=== PATIENT | male | born 1970 | race African-American/Black ===

== ENCOUNTER 2016-11-26 05:55 | Emergency (ER) | payer BC, OTHER ==
[~2016-11-26] VITALS: Ht 170.2 cm; Wt 78.0 kg
[~2016-11-26 05:55] MED LIST: AMLO10 PO; BACT800T5 PO; CIAL5TAB PO; DARU1TAB PO; NAPR500 PO; PREV30CA36 PO; TRUV200300 PO
[2016-11-26 05:57] VITALS: BP 142/90; PULSE 93; RESP 16; TEMP 98.2; O2SAT 96
[2016-11-26] MEDS ORDERED: EMTR1TAB PO (06:14)
[2016-11-26] MEDS ORDERED: AMLO10 PO (06:14)
[2016-11-26] MEDS ORDERED: BACT800T5 PO (06:14)
[2016-11-26] MEDS ORDERED: DARU1TAB2 PO (06:14)
[2016-11-26] MEDS ORDERED: HYDR-2374 PO (06:14)
[2016-11-26] MEDS ORDERED: AMOX500T PO (06:42)
[2016-11-26] MEDS ORDERED: AMOXICILLIN (TRIHYDRATE) 500 MG CAP PO ONE (06:45)
--- NOTE | 2016-11-26 06:46 | PD ---
HPI Chief Complaint: Cold / Flu Symptoms Time Seen by Provider: 06:43 Travel History International Travel<30 days: No Contact w/Intl Traveler<30days: No Traveled to known affect area: No History of Present Illness HPI 46 old black male presents to emergency Department with complaints of sore throat over the past 4 days. In addition he has had subjective fever and chills , earache, sore throat, congestion, cough, and slight diarrhea. He denies any shortness of breath or wheezing. No nausea vomiting. No abdominal pain or urinary symptoms. PFSH Past Medical History Narrative Medical Hypertension, HIV, chronic back pain Heart Rhythm Problems: No Cardiovascular Problems: Yes High Cholesterol: No Chest Pain: Yes Congestive Heart Failure: No Cerebrovascular Accident: No Diminished Hearing: No GERD: No Genitourinary: No Hepatitis: No Hiatal Hernia: No Hypertension: Yes Immune Disorder: Yes (hiv) Kidney Stones: No Musculoskeletal: No Neurologic: Yes Reproductive: No Respiratory: No Immunizations Current: Yes Migraines: Yes (SINUS PROBLEMS) Myocardial Infarction: No Renal Failure: No Ulcer: No Tetanus Vaccination: < 5 Years Past Surgical History Surgical History: No Previous Surgery Appendectomy: No Cholecystectomy: No Other Surgery: No Social History Alcohol Use: Yes (OCC) Tobacco Use: No Substance Use: Yes ( MARIJUANA) Allergies-Medications (Allergen,Severity, Reaction): Coded Allergies: No Known Allergies (Verified , 11/26/16) Reported Meds & Prescriptions Reported Meds & Active Scripts Active Amoxicillin 500 Mg Tab 1,000 Mg PO BID Reported Hydrocodone-Acetaminophen 10-300 Tab 1 Tab PO Q4H PRN Norvasc (Amlodipine Besylate) 10 Mg Tab 10 Mg PO DAILY Prezcobix (Darunavir-Cobicistat) 800-150 Mg Tab 1 Tab PO DAILY Truvada (Emtricitabine-Tenofovir Disoproxil Fumarate) 200-300 Mg Tab 1 Tab PO DAILY Bactrim DS (Sulfamethoxazole-Trimethoprim) 800-160 Mg Tab 1 Tab PO DAILY Review of Systems Except as stated in HPI: all other systems reviewed are Neg Physical Exam Narrative GENERAL: Well-developed, well-nourished in no acute distress. Nontoxic appearing. HEAD: Normocephalic, atraumatic. EYES: Pupils equal round and reactive. Extraocular motions intact. No scleral icterus. No injection or drainage. ENT: TMs clear without erythema. The external auditory canals clear. Nose: clear . Posterior pharynx is pink and moist. No tonsillar edema or exudate. Uvula midline. Airway patent. NECK: Trachea midline.Supple, nontender, moves head freely. No central bony tenderness or spasm. CARDIOVASCULAR: Regular rate and rhythm without murmurs, gallops, or rubs. RESPIRATORY: Clear to auscultation. Breath sounds equal bilaterally. No wheezes , rales, or rhonchi. GASTROINTESTINAL: Abdomen soft, non-tender, nondistended. No hepato-splenomegaly , or palpable masses. No guarding. EXTREMITIES: No clubbing, cyanosis, or edema. No joint tenderness, effusion, or edema noted. BACK: Nontender without deformity or crepitance. No flank tenderness. Data Data Last Documented VS Vital Signs Date Time Temp Pulse Resp B/P Pulse Ox O2 Delivery O2 Flow Rate FiO2 11/26/16 05:57 98.2 93 16 142/90 96 Room Air MDM Medical Decision Making Medical Screen Exam Complete: Yes Emergency Medical Condition: Yes Medical Record Reviewed: Yes Differential Diagnosis MDM: High Differential diagnoses: Strep throat, viral pharyngitis, mono, peritonsillar abscess Narrative Course Patient is given amoxicillin 500 mg by mouth. This is acute pharyngitis Diagnosis Primary Impression: Acute pharyngitis Qualified Code: J02.9 - Acute pharyngitis, unspecified etiology Patient Instructions: General Instructions Additional Instructions: Rest. Force fluids. Saltwater gargles. Tylenol and Advil. Chloraseptic [place] Cepastat lozenge. Amoxicillin. Follow-up with a primary care doctor in one week. Return to the ER if any problems. Med/Other Pt SpecificInfo: Prescription(s) given Scripts Amoxicillin 500 Mg Tab1,000 Mg PO BID #40 TAB Prov:Stefani Lui MD 11/26/16 Disposition: 01 DISCHARGE HOME Condition: Serious Bravo Marina Nov 26, 2016 06:45
== END 2016-11-26 06:51 | disposition home or self-care (01) ==
LOC: NEPB 05:55
DX: J02.9 Acute pharyngitis, unspecified (principal); I10 Essential (primary) hypertension; Z21 Asymptomatic human immunodeficiency virus [HIV] infection status
CPT/HCPCS: 99283

== ENCOUNTER 2017-06-26 17:27 | Emergency (ER) | payer BC, OTHER ==
[~2017-06-26] VITALS: Ht 170.2 cm; Wt 77.0 kg
[~2017-06-26 17:27] MED LIST changes: +AMOX500T PO; -CIAL5TAB PO; -DARU1TAB PO; +DARU1TAB2 PO; +EMTR1TAB PO; +HYDR-2374 PO; -NAPR500 PO; -PREV30CA36 PO; -TRUV200300 PO
[2017-06-26 17:56] VITALS: BP 157/104; PULSE 68; RESP 18; TEMP 98.3; O2SAT 98
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
== END 2017-06-26 18:36 ==
LOC: NEPD 17:27
DX: M54.2 Cervicalgia (principal); M54.5 Low back pain; V53.6XXA Passenger in pick-up truck or van injured in collision with car, pick-up truck or van in traffic accident, initial encounter; Y92.414 Local residential or business street as the place of occurrence of the external cause; I10 Essential (primary) hypertension
CPT/HCPCS: 99283

== ENCOUNTER 2017-07-06 21:49 | Emergency (ER) | payer BC ==
[~2017-07-06] VITALS: Ht 170.2 cm; Wt 80.0 kg
[~2017-07-06 21:49] MED LIST changes: -AMOX500T PO
[2017-07-06 22:00] VITALS: BP 159/106; PULSE 61; RESP 14; TEMP 98.7; O2SAT 98
--- NOTE | 2017-07-06 22:39 | PD ---
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 He was asked by his employer to go get checked out. Patient states he helped his daughter move today in the hot sun prior to going to work today and he feels that he just felt a little faint at work, he states he feels 100% normal. He has no pain, headache or dizziness, no nausea, no vomiting, no visual changes. He states he is current on his HIV medications, and is on amlodipine for pressure he has no known drug allergies. PFSH Past Medical History Heart Rhythm Problems: No Cardiovascular Problems: Yes High Cholesterol: No Chest Pain: Yes Congestive Heart Failure: No Cerebrovascular Accident: No Diminished Hearing: No GERD: No Genitourinary: No Hepatitis: No Hiatal Hernia: No Hypertension: Yes Immune Disorder: Yes (hiv) Kidney Stones: No Musculoskeletal: No Neurologic: Yes Reproductive: No Respiratory: No Immunizations Current: Yes Migraines: Yes (SINUS PROBLEMS) Myocardial Infarction: No Renal Failure: No Ulcer: No Tetanus Vaccination: < 5 Years Influenza Vaccination: Yes Past Surgical History Surgical History: No Previous Surgery Appendectomy: No Cholecystectomy: No Other Surgery: No Social History Alcohol Use: Yes (OCC) Tobacco Use: No Substance Use: Yes ( MARIJUANA) Allergies-Medications (Allergen,Severity, Reaction): Coded Allergies: No Known Allergies (Verified , 06/26/17) Reported Meds & Prescriptions Reported Meds & Active Scripts Active Reported Hydrocodone-Acetaminophen 10-300 Tab 1 Tab PO Q4H PRN Norvasc (Amlodipine Besylate) 10 Mg Tab 10 Mg PO DAILY Truvada (Emtricitabine-Tenofovir Disoproxil Fumarate) 200-300 Mg Tab 1 Tab PO DAILY Bactrim DS (Sulfamethoxazole-Trimethoprim) 800-160 Mg Tab 1 Tab PO DAILY Review of Systems Except as stated in HPI: all other systems reviewed are Neg General / Constitutional: No: Fever, Chills Eyes: No: Diploplia, Blurred Vision, Photophobia, Blind Spots, Visual changes, Blindness HENT: Positive: Lightheadedness, No: Headaches, Vertigo, Sore Throat, Rhinitis , Rhinorrhea, Congestion, Nosebleed, Neck Stiffness, Neck Pain, Ear Discharge, Earache Cardiovascular: No: Chest Pain or Discomfort Respiratory: No: Shortness of Breath Gastrointestinal: No: Nausea, Vomiting, Diarrhea, Abdominal Pain Genitourinary: No: Dysuria Musculoskeletal: No: Pain Skin: No Rash Neurologic: No: Weakness Psychiatric: No: Depression Endocrine: No: Polydipsia Hematologic/Lymphatic: No: Easy Bruising Physical Exam Narrative GENERAL: Patient appears no acute distress. SKIN: Warm and dry. Normal color. Normal turgor. HEAD: Atraumatic. Normocephalic. EYES: Pupils equal and round. No scleral icterus. No injection or drainage. ENT: No nasal bleeding or discharge. Mucous membranes pink and moist. Pharynx is clear. Airway is patent TMs are clear bilaterally. No sinus tenderness or signs of congestion or sinusitis. NECK: Trachea midline. Supple nontender. CARDIOVASCULAR: Regular rate and rhythm. No murmurs gallops or rubs. RESPIRATORY: No accessory muscle use. Clear to auscultation. Breath sounds equal bilaterally. MUSCULOSKELETAL: Extremities without clubbing, cyanosis, or edema. No obvious deformities. NEUROLOGICAL: Awake and alert. No obvious cranial nerve deficits. Motor grossly within normal limits. Five out of 5 muscle strength in the arms and legs. Normal speech. PSYCHIATRIC: Appropriate mood and affect; insight and judgment normal. Data Data Last Documented VS Vital Signs Date Time Temp Pulse Resp B/P (MAP) Pulse Ox O2 Delivery O2 Flow Rate FiO2 07/06/17 22:00 98.7 61 14 159/106 (123) 98 Room Air [facility] Medical Decision Making Medical Screen Exam Complete: Yes Emergency Medical Condition: No Differential Diagnosis Heat exhaustion. Dizziness. Dehydration. Near syncope. Narrative Course A medical screening exam was performed: At the time of evaluation the presenting medical condition was determined not to be of an emergent nature. The patient was given the option of receiving additional care, but declined. Patient was given options for additional community resources from which to obtain care. The Patient Has Been advised to seek medical attention for their presenting complaint. The patient has been advised to return to the ER at any time if an emergent condition develops. Condition: Stable Mo Hummel Jul 06, 2017 22:39
== END 2017-07-06 22:55 | disposition left against medical advice (07) ==
LOC: NEPC 21:49
DX: R42 Dizziness and giddiness (principal); I10 Essential (primary) hypertension; Z79.899 Other long term (current) drug therapy; Z21 Asymptomatic human immunodeficiency virus [HIV] infection status
CPT/HCPCS: 99281

== ENCOUNTER 2017-10-04 18:53 | Emergency (ER) | payer BC ==
[~2017-10-04] VITALS: Ht 170.2 cm; Wt 78.0 kg
[~2017-10-04 18:53] MED LIST changes: -DARU1TAB2 PO; -EMTR1TAB PO; +TRUV200300 PO
[2017-10-04 18:55] VITALS: BP 154/98; PULSE 102; RESP 20; TEMP 99.1; O2SAT 99
[2017-10-04] MEDS ORDERED: CIPR0.3S RIGHT EAR (19:21)
[2017-10-04] MEDS ORDERED: AMOX875T PO (19:21)
--- NOTE | 2017-10-04 19:22 | PD ---
HPI Chief Complaint: ENT Complaint Time Seen by Provider: 19:14 Travel History International Travel<30 days: No Contact w/Intl Traveler<30days: No Traveled to known affect area: No History of Present Illness HPI 47 yo M right ear pain and decreased hearing. + tinnitus right ear. + discharge yesterday. + subjective fever. no swimming lately. 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 + hx HIV, compliant with meds, viral load undetectable, CD4 898. PFSH Past Medical History Heart Rhythm Problems: No Cardiovascular Problems: Yes High Cholesterol: No Chest Pain: Yes Congestive Heart Failure: No Cerebrovascular Accident: No Diminished Hearing: No GERD: No Genitourinary: No Hepatitis: No Hiatal Hernia: No Hypertension: Yes Immune Disorder: Yes (hiv) Kidney Stones: No Musculoskeletal: No Neurologic: Yes Reproductive: No Respiratory: No Immunizations Current: Yes Migraines: Yes (SINUS PROBLEMS) Myocardial Infarction: No Renal Failure: No Ulcer: No Past Surgical History Appendectomy: No Cholecystectomy: No Other Surgery: No Social History Alcohol Use: Yes (OCC) Tobacco Use: No Substance Use: Yes ( MARIJUANA) Allergies-Medications (Allergen,Severity, Reaction): Coded Allergies: No Known Allergies (Verified Adverse Reaction, Unknown, 10/04/17) Reported Meds & Prescriptions Reported Meds & Active Scripts Active Reported Hydrocodone-Acetaminophen 10-300 Tab 1 Tab PO Q4H PRN Norvasc (Amlodipine Besylate) 10 Mg Tab 10 Mg PO DAILY Truvada (Emtricitabine-Tenofovir Disoproxil Fumarate) 200-300 Mg Tab 1 Tab PO DAILY Bactrim DS (Sulfamethoxazole-Trimethoprim) 800-160 Mg Tab 1 Tab PO DAILY Review of Systems General / Constitutional: No: Fever HENT: Positive: Ear Discharge, Earache, No: Headaches, Vertigo Physical Exam Narrative GENERAL: 47 yo M, WNWD, NAD SKIN: Warm and dry. HEAD: Normocephalic. EARS: Minimal erythema about the R TM with minimal erythema about the ext canal. no mastoid TTP. L ear exam normal. EYES: No scleral icterus. No injection or drainage. NECK: Supple, trachea midline. No JVD or lymphadenopathy. Data Data Last Documented VS Vital Signs Date Time Temp Pulse Resp B/P (MAP) Pulse Ox O2 Delivery O2 Flow Rate FiO2 11/23/17 18:55 99.1 102 20 154/98 (116) 99 Room Air VS reviewed [facility] Medical Decision Making Medical Screen Exam Complete: Yes Emergency Medical Condition: Yes Medical Record Reviewed: Yes Differential Diagnosis AOM, otitis externa, malignant otitis externa Narrative Course TM on R c/w AOM with some erythema about the external canal Ciprodex and amox scripts Diagnosis Primary Impression: Acute otitis externa Qualified Codes: H60.501 - Unspecified acute noninfective otitis externa, right ear Referrals: Primary Care Physician 2 days Med/Other Pt SpecificInfo: Prescription(s) given Scripts Amoxicillin (Amoxicillin) 875 Mg Tab 875 MG PO BID for Infection for 7 Days, #14 TAB 0 Refills Prov: Los Rowell MD 10/04/17 Ciprofloxacin-Dexamethasone Otic Drops (Ciprodex Otic Drops) 0.3-0.1% Susp 4 DROP RIGHT EAR BID for Infection, #1 BOTTLE 0 Refills Prov: Los Rowell MD 10/04/17 Disposition: 01 DISCHARGE HOME Condition: Stable Los Rowell MD Oct 04, 2017 19:22
[2017-10-04] MEDS ORDERED: AMOXICILLIN 875 MG TAB PO ONE (19:30)
== END 2017-10-04 19:41 | disposition home or self-care (01) ==
LOC: NEPK 18:53
DX: H60.501 Unspecified acute noninfective otitis externa, right ear (principal); I10 Essential (primary) hypertension; Z79.899 Other long term (current) drug therapy; Z21 Asymptomatic human immunodeficiency virus [HIV] infection status
CPT/HCPCS: 99284

== ENCOUNTER 2017-12-28 18:39 | Emergency (ER) | payer BC, MEDICAID ==
[~2017-12-28] VITALS: Ht 170.2 cm; Wt 77.3 kg
[~2017-12-28 18:39] MED LIST changes: +AMOX875T PO; +CIPR0.3S RIGHT EAR
[2017-12-28] MEDS ORDERED: IOHEXOL 350 MG/ML 10 ML VIAL (for RAD DIAG) IVCONTRAST ONE (18:40)
[2017-12-28 18:41] VITALS: BP 147/94; PULSE 85; RESP 16; TEMP 100.7; O2SAT 96
[2017-12-28 19:45] VITALS: BP 165/95; PULSE 88; RESP 16; O2SAT 99
[2017-12-28] MEDS ORDERED: SODIUM CHLOR 0.9% 1000 ML INJ 1,000 ML IV ONE (20:15)
[2017-12-28] MEDS ORDERED: ACETAMINOPHEN 325 MG TAB PO ONE (20:15)
[2017-12-28 20:19] VITALS: PULSE 87; RESP 16; O2SAT 98
--- NOTE | 2017-12-28 20:46 | PD ---
HPI Chief Complaint: Cold / Flu Symptoms Time Seen by Provider: 19:27 Travel History International Travel<30 days: No Contact w/Intl Traveler<30days: No Traveled to known affect area: No History of Present Illness HPI 47-year-old male that presents to the ED for evaluation of cold-like symptoms, nausea vomiting and diarrhea. Per patient she's had symptoms for about 2 days now. Patient has a history of HIV and is now no treatment since November. Per patient he lost his insurance and he isn't able to afford his medications but he apparently now is back on insurance and will follow with her infectious disease doctor on Sunday. Per patient HIS labs have been normal and he is undetectable per patient. Per patient he before Was Normal. Per patient his main symptoms or cough, body aches and fever. Per patient his been taking medications with good relief of the fever but he continues to have diarrhea. He does live lower quadrant abdominal pain and states that he's been coughing a lot. Per patient he developed "bump" on his right lower quadrant that is somewhat tender. He denies any urinary or bowel movement issues other than diarrhea. No hematuria. No blood in the stool. States feeling nauseous and not able to drink much because his been vomiting. No blood. No sick contacts. Did not get the flu shot. Pain. Patient is 6 out of 10. PFSH Past Medical History Heart Rhythm Problems: No Cardiovascular Problems: Yes High Cholesterol: No Chest Pain: Yes Congestive Heart Failure: No Cerebrovascular Accident: No Diminished Hearing: No GERD: No Genitourinary: No Hepatitis: No Hiatal Hernia: No Hypertension: Yes Immune Disorder: Yes (hiv) Kidney Stones: No Musculoskeletal: No Neurologic: Yes Reproductive: No Respiratory: No Immunizations Current: Yes Migraines: Yes Myocardial Infarction: No Renal Failure: No Ulcer: No Past Surgical History Appendectomy: No Cholecystectomy: No Other Surgery: No Social History Alcohol Use: Yes (OCC) Tobacco Use: No Substance Use: Yes (MARIJUANA) Allergies-Medications (Allergen,Severity, Reaction): Coded Allergies: No Known Allergies (Verified Adverse Reaction, Unknown, 12/28/17) Reported Meds & Prescriptions Reported Meds & Active Scripts Active Zofran (Ondansetron HCl) 4 Mg Tab 4 Mg PO Q6HR PRN Tessalon Perles (Benzonatate) 100 Mg Cap 100 Mg PO TID PRN Azithromycin 250 Mg Tab 250 Mg PO DIRECTED Take 2 tabs (500 mg) on day 1 then 1 tab daily x 4 days. Reported Norvasc (Amlodipine Besylate) 10 Mg Tab 10 Mg PO DAILY Bactrim DS (Sulfamethoxazole-Trimethoprim) 800-160 Mg Tab 1 Tab PO DAILY Review of Systems Except as stated in HPI: all other systems reviewed are Neg Physical Exam Narrative GENERAL: Well-nourished, well-developed patient in no apparent distress. SKIN: Warm and dry. HEAD: Atraumatic. Normocephalic. EYES: Pupils equal and round reactive to light and accommodation. No scleral icterus. No injection or drainage. ENT: No nasal bleeding or discharge. Mucous membranes pink and moist. TMs are clear with no sign of infection or perforation. No mastoid tenderness. Ear canals are intact bilaterally. No lymphadenopathy. Nostril mucosa is red and moist with clear mucus noted. No sinus tenderness to palpation noted. Tonsils are not enlarged or swollen. No ulvua Deviation. Tongue is midline. NECK: Trachea midline. No JVD. No meningeal signs noted CARDIOVASCULAR: Regular rate and rhythm. RESPIRATORY: No accessory muscle use. Clear to auscultation. Breath sounds equal bilaterally. GASTROINTESTINAL: Abdomen soft, tender to palpation on the right lower quadrant and left lower quadrant, nondistended. Hepatic and splenic margins not palpable. MUSCULOSKELETAL: Extremities without clubbing, cyanosis, or edema. No obvious deformities. NEUROLOGICAL: Awake and alert. No obvious cranial nerve deficits. Motor grossly within normal limits. Five out of 5 muscle strength in the arms and legs. Normal speech. PSYCHIATRIC: Appropriate mood and affect; insight and judgment normal. Data Data Last Documented VS Vital Signs Date Time Temp Pulse Resp B/P (MAP) Pulse Ox O2 Delivery O2 Flow Rate FiO2 12/28/17 20:19 87 16 98 Room Air 12/28/17 18:41 100.7 Orders Orders Complete Blood Count With Diff (12/28/17 20:03) Comprehensive Metabolic Panel (12/28/17 20:03) Blood Culture (12/28/17 20:03) Lipase (12/28/17 20:03) Urinalysis - C+S If Indicated (12/28/17 20:03) Magnesium (Mg) (12/28/17 20:03) Influenzae A/B Antigen (12/28/17 20:03) Chest, Single Ap (12/28/17 20:03) Iv Access Insert/Monitor (12/28/17 20:03) Ecg Monitoring (12/28/17 20:03) Oximetry (12/28/17 20:03) Acetaminophen (Tylenol) (12/28/17 20:15) Sodium Chlor 0.9% 1000 Ml Inj (Ns 1000 M (12/28/17 20:15) Ct Abd/Pel W Iv Contrast(Rout) (12/28/17 ) Lactic Acid Sepsis Protocol (12/28/17 20:10) Iohexol 350 Inj (Omnipaque 350 Inj) (12/28/17 18:40) Ed Discharge Order (12/28/17 22:46) Labs Laboratory Tests Test 12/28/17 20:15 12/28/17 20:25 White Blood Count 7.8 TH/MM3 Red Blood Count 4.87 MIL/MM3 Hemoglobin 14.4 GM/DL Hematocrit 42.5 % Mean Corpuscular Volume 87.2 FL Mean Corpuscular Hemoglobin 29.6 PG Mean Corpuscular Hemoglobin Concent 33.9 % Red Cell Distribution Width 14.4 % Platelet Count 162 TH/MM3 Mean Platelet Volume 9.1 FL Neutrophils (%) (Auto) 48.8 % Lymphocytes (%) (Auto) 39.7 % Monocytes (%) (Auto) 10.1 % Eosinophils (%) (Auto) 0.9 % Basophils (%) (Auto) 0.5 % Neutrophils # (Auto) 3.8 TH/MM3 Lymphocytes # (Auto) 3.1 TH/MM3 Monocytes # (Auto) 0.8 TH/MM3 Eosinophils # (Auto) 0.1 TH/MM3 Basophils # (Auto) 0.0 TH/MM3 CBC Comment DIFF FINAL Differential Comment Blood Urea Nitrogen 9 MG/DL Creatinine 1.25 MG/DL Random Glucose 75 MG/DL Total Protein 8.1 GM/DL Albumin 3.6 GM/DL Calcium Level 8.5 MG/DL Magnesium Level 2.4 MG/DL Alkaline Phosphatase 102 U/L Aspartate Amino Transf (AST/SGOT) 23 U/L Alanine Aminotransferase (ALT/SGPT) 16 U/L Total Bilirubin 0.3 MG/DL Sodium Level 139 MEQ/L Potassium Level 3.9 MEQ/L Chloride Level 105 MEQ/L Carbon Dioxide Level 28.6 MEQ/L Anion Gap 5 MEQ/L Estimat Glomerular Filtration Rate 75 ML/MIN Lactic Acid Level 1.4 mmol/L Lipase 118 U/L Urine Color YELLOW Urine Turbidity CLEAR Urine pH 7.0 Urine Specific [place] 1.019 Urine Protein TRACE mg/dL Urine Glucose (UA) NEG mg/dL Urine Ketones NEG mg/dL Urine Occult Blood NEG Urine Nitrite NEG Urine Bilirubin NEG Urine Urobilinogen 2.0 MG/DL Urine Leukocyte Esterase NEG Urine WBC LESS THAN 1 /hpf Microscopic Urinalysis Comment CULT NOT INDICATED MDM Medical Decision Making Medical Screen Exam Complete: Yes Emergency Medical Condition: Yes Medical Record Reviewed: Yes Interpretation(s) CBC & BMP Diagram 12/28/17 20:15 Total Protein 8.1, Albumin 3.6, Calcium Level 8.5, Magnesium Level 2.4, Alkaline Phosphatase 102, Aspartate Amino Transf (AST/SGOT) 23, Alanine Aminotransferase (ALT/SGPT) 16, Total Bilirubin 0.3 lipase negative Last Impressions Chest X-Ray 12/28/172002 Signed Impressions: Service Date/Time: Thursday, December 28, 2017 21:13 - CONCLUSION: 1. No acute findings. Bravo Villeda MD CT abdomen negative for acute disease flu negative Differential Diagnosis Viral illness versus influenza versus sepsis versus diverticulitis versus hernia versus pneumonia Narrative Course 47-year-old male that presents to the ED for evaluation of cold-like symptoms and fever. Patient was properly examined and was found to have signs and symptoms of unclear 20 with likely viral. Labs and imaging were ordered. Patient does have a history of immunosuppression and will do sepsis workup was he does have a fever and tachycardia. Labs and imaging showed no sign of acute . Patient was pressure. Likely bronchitis. Will treat with antibiotics for for bacterial infection. Patient was given Tessalon Perles as well as Zofran for his nausea. Told to follow closely with PCP. Take OTC meds as needed. See ED worsening symptoms. Given note for work. Diagnosis Primary Impression: Acute bronchitis Qualified Codes: J20.9 - Acute bronchitis, unspecified Additional Impression: Gastroenteritis Patient Instructions: General Instructions Departure Forms: Tests/Procedures, Work Release Enter return to work date: Dec 31, 2017 Additional Instructions: Motrin and Tylenol for pain and fever. You can use [id number] antihistamine as well as well as Mucinex as needed for runny nose and congestion. Cough drops for cough as needed. Drink plenty of fluids. Follow-up with PCP. See ED for worsening symptoms. Med/Other Pt SpecificInfo: Prescription(s) given Scripts Ondansetron (Zofran) 4 Mg Tab 4 MG PO Q6HR Y for NAUSEA OR VOMITING, #14 TAB 0 Refills Prov: Susanna Mckeon MD 12/28/17 Benzonatate (Tessalon Perles) 100 Mg Cap 100 MG PO TID Y for COUGH, #20 CAP 0 Refills Prov: Susanna Mckeon MD 12/28/17 Azithromycin (Azithromycin) 250 Mg Tab 250 MG PO DIRECTED for Infection, #6 TAB 0 Refills Take 2 tabs (500 mg) on day 1 then 1 tab daily x 4 days. Prov: Susanna Mckeon MD 12/28/17 Disposition: 01 DISCHARGE HOME Condition: Stable Preet Boucher Dec 28, 2017 20:46
[2017-12-28 21:22] LABS: AUTOMATED NEUTROPHIL # 3.8 TH/MM3 (1.8-7.7); BASOPHIL % 0.5 % (0.0-2.0); EOSINOPHIL # 0.1 TH/MM3 (0-0.4); EOSINOPHIL % 0.9 % (0.0-4.0); HEMATOCRIT 42.5 % (39.0-51.0); HEMOGLOBIN 14.4 GM/DL (13.0-17.0); LYMPH % 39.7 % (9.0-44.0); LYMPHOCYTE # 3.1 TH/MM3 (1.0-4.8); MEAN CELL VOLUME 87.2 FL (80.0-100.0); MEAN CORPUSCULAR HEMOGLOBIN 29.6 PG (27.0-34.0); MEAN CORPUSCULAR HGB CONC 33.9 % (32.0-36.0); MEAN PLATELET VOLUME 9.1 FL (7.0-11.0); MONO % 10.1 % (0.0-8.0); MONOCYTE # 0.8 TH/MM3 (0-0.9); NEUT % 48.8 % (16.0-70.0); PLATELET COUNT 162 TH/MM3 (150-450); RED BLOOD COUNT 4.87 MIL/MM3 (4.50-5.90); RED CELL DISTRIBUTION WIDTH 14.4 % (11.6-17.2); WHITE BLOOD COUNT 7.8 TH/MM3 (4.0-11.0)
[2017-12-28 21:37] LABS: BILIRUBIN, URINE NEG (NEG); BLOOD, URINE NEG (NEG); GLUCOSE,URINE NEG (NEG); KETONE, URINE NEG (NEG); NITRITE,URINE NEG (NEG); URINE COLOR YELLOW (YELLW/STRAW); URINE LEUKOCYTE ESTERASE NEG (NEG)
[2017-12-28 21:44] LABS: ALKALINE PHOSPHATASE 102 U/L (45-117); TOTAL BILIRUBIN ADULT 0.3 MG/DL (0.2-1.0); TOTAL PROTEIN 8.1 GM/DL (6.4-8.2)
[2017-12-28 21:49] LABS: ALBUMIN 3.6 GM/DL (3.4-5.0); ALT (GPT) 16 U/L (12-78); AST (GOT) 23 U/L (15-37); BICARBONATE 28.6 MEQ/L (21.0-32.0); BLOOD UREA NITROGEN 9 MG/DL (7-18); CALCIUM 8.5 MG/DL (8.5-10.1); CHLORIDE 105 MEQ/L (98-107); CREATININE 1.25 MG/DL (0.60-1.30); GLOMERULAR FILTRATION RATE 75 ML/MIN (>89); GLUCOSE,RANDOM 75 MG/DL (74-106); MAGNESIUM 2.4 MG/DL (1.5-2.5); SODIUM (NA) 139 MEQ/L (136-145)
--- NOTE | 2017-12-28 22:03 | RADRPT ---
EXAM DATE/TIME: 12/28/2017 21:13 [facility] COMPARISON: No previous studies available for comparison. INDICATIONS : Chest pain for two days. MEDICAL HISTORY : Hypertension. Cardiovascular disease. HIV. SURGICAL HISTORY : None. ENCOUNTER: Initial ACUITY: 2 days PAIN SCORE: 6/10 LOCATION: Bilateral chest FINDINGS: A single view of the chest demonstrates the lungs to be symmetrically aerated without evidence of mas s, infiltrate or effusion. The cardiomediastinal contours are unremarkable. Osseous structures are intact. CONCLUSION: 1. No acute findings. Bravo Villeda MD on December 28, 2017 at 22:00 Board Certified Radiologist. This report was verified electronically.
--- NOTE | 2017-12-28 22:42 | RADRPT ---
EXAM DATE/TIME: 12/28/2017 22:25 [facility] COMPARISON: No previous studies available for comparison. INDICATIONS : Nausea, vomiting and fever for two days. IV CONTRAST: 100 cc Omnipaque 350 (iohexol) IV ORAL CONTRAST: No oral contrast ingested. RADIATION DOSE: 6.64 CTDIvol (mGy) MEDICAL HISTORY : Cardiovascular disease. Hypertension. HIV. SURGICAL HISTORY : None. ENCOUNTER: Initial ACUITY: 2 days PAIN SCALE: 2/10 LOCATION: abdomen TECHNIQUE: Volumetric scanning of the abdomen and pelvis was performed. Using automated exposure control and ad justment of the mA and/or kV according to patient size, radiation dose was kept as low as reasonably achievable to obtain optimal diagnostic quality images. DICOM format image data is available electro nically for review and comparison. FINDINGS: Lung bases demonstrate some mild distal airway disease the right lung base similar to January 2016. No acute findings in the liver, spleen, adrenals, kidneys and pancreas. No calcified gallstones or bi liary ductal dilatation. This mild constipation. No pelvic masses or adenopathy. There is some fluid in the right inguinal canal. Trace free fluid in the pelvis. CONCLUSION: 1. No acute findings. Mild constipation. Small amount of fluid in the right inguinal canal and trace free fluid present in the pelvis. Bravo Villeda MD on December 28, 2017 at 22:36 Board Certified Radiologist. This report was verified electronically.
[2017-12-28] MEDS ORDERED: ZOFR4TAB PO (22:46)
[2017-12-28] MEDS ORDERED: AZIT250T3 PO (22:46)
[2017-12-28] MEDS ORDERED: BENZ100 PO (22:46)
== END 2017-12-28 23:03 | disposition home or self-care (01) ==
LOC: NEPC 18:39
DX: J20.9 Acute bronchitis, unspecified (principal); K52.9 Noninfective gastroenteritis and colitis, unspecified; I10 Essential (primary) hypertension; Z21 Asymptomatic human immunodeficiency virus [HIV] infection status
CPT/HCPCS: 71045; 74177; 80053; 81001; 83605; 83690; 83735; 85025; 87040; 87804; 96360; 99285; J7030; Q9967

== ENCOUNTER 2018-01-02 02:04 | Emergency (ER) | payer MEDICAID ==
[~2018-01-02] VITALS: Ht 170.2 cm; Wt 80.0 kg
[~2018-01-02 02:04] MED LIST changes: -AMOX875T PO; +AZIT250T3 PO; +BENZ100 PO; -CIPR0.3S RIGHT EAR; -HYDR-2374 PO; -TRUV200300 PO; +ZOFR4TAB PO
[2018-01-02 02:08] VITALS: BP 147/79; PULSE 69; RESP 16; TEMP 98.8; O2SAT 100
== END 2018-01-02 04:00 | disposition left against medical advice (07) ==
LOC: NED 02:04
DX: Z53.21 Procedure and treatment not carried out due to patient leaving prior to being seen by health care provider (principal)
CPT/HCPCS: 99281

== ENCOUNTER 2018-07-14 08:28 | Inpatient (IN) ==
[2018-07-14] MEDS ORDERED: Acetaminophen 325 MG Tablet PO ONE (09:44)
[2018-07-14] MEDS ORDERED: Sod Chloride 0.9% Inj 1,000 ML IV.SIG SCH (09:45)
--- NOTE | 2018-07-14 10:13 | XR ---
EXAM DATE: 07/14/2018 10:09 AM EDT AGE/SEX: 48 years / Male INDICATIONS: . Headache, fever, and lightheaded. CLINICAL DATA: This is the patient's initial encounter. Patient reports that signs and symptoms have been present for 1 day and indicates a pain score of 0/10. MEDICAL/SURGICAL HISTORY: None. None. COMPARISON: [facility] [place]ST SINGLE AP, 12/28/2017. . FINDINGS: There is patchy airspace disease in the left lower lobe. Cardiac and mediastinal contours are normal. Right lung is clear. Osseous structures are intact. CONCLUSION: Left lower lobe airspace disease. Electronically signed by: Dallas Hernandez MD 07/14/2018 10:11 AM EDT
[2018-07-14 10:27] LABS: Baso % (Auto) 0.1 % (0.0-2.0); Hematocrit 40.7 % (39.0-51.0); Hemoglobin 13.4 gm/dL (13.0-17.0); Lymph # (Auto) 3.1 th/mm3 (1.0-4.8); Mean Corpuscular HGB Conc 32.9 % (32.0-36.0); Mean Corpuscular Volume 88.1 fL (80.0-100.0); Mean Platelet Volume 8.7 fL (7.0-11.0); Mono # (Auto) 1.4 th/mm3 (0.0-0.9); Mono % (Auto) 6.4 % (0.0-8.0); Neut # (Auto) 17.5 th/mm3 (1.8-7.7); Neut % (Auto) 79.5 % (16.0-70.0); Platelet Count 161 th/mm3 (150-450); Red Blood Count 4.62 mil/mm3 (4.50-5.90); Red Cell Distribution Width 14.8 % (11.6-17.2)
[2018-07-14 10:57] LABS: Anion Gap 7 meq/L (5-15); Blood Urea Nitrogen 11 mg/dL (7-18); Calcium 8.4 mg/dL (8.5-10.1); Carbon Dioxide 23.6 meq/L (21.0-32.0); Chloride 105 meq/L (98-107); Glomerular Filtration Rate Greater Than 89 mL/min (>89); Glucose,Random 97 mg/dL (74-106); Potassium 3.6 meq/L (3.5-5.1); Sodium 136 meq/L (136-145)
--- NOTE | 2018-07-14 11:42 | ED ---
HPI General Chief complaint: Fever Stated complaint: Fever/headache Time Seen by Provider: 07/14/18 08:55 History of Present Illness HPI narrative: Patient 40-year-old male otherwise healthy presents emergency department with cough congestion generalized body aches and fever for the past 2 days. Patient states that family members been sent home at 6 as well as his kids. No chest pain, mild shortness of breath. Also endorses headache. No nuchal rigidity. States symptoms moderate, for the past 2 days, gradually worsening. Associated signs symptoms as above per Related Data Home Medications Medication Instructions Recorded Confirmed amlodipine [Norvasc] 10 mg PO DAILY 07/14/18 07/14/18 Allergies Allergy/AdvReac Type Severity Reaction Status Date / Time No Known Allergies AdvReac Unknown Uncoded 01/02/18 02:32 Review of Systems ROS: all other systems reviewed are negative [facility] Social History Social History Substance History: Past History Second Hand Smoke Exposure: No Smoking Status: Never smoker How Often Do You Have a Drink Containing Alcohol: 2 to 3 times a week Recent Travel in [facility] within the Last 8 Weeks: No Recent Out of Country Travel within the Last 8 Weeks: No Immunization History Tetanus Immunization: Unsure Hx Influenza Vaccine This Season: Yes Exam Narrative Exam Narrative: GENERAL: WD/WN in nad. SKIN: Focused skin assessment warm/dry. HEAD: Atraumatic. Normocephalic. EYES: Pupils equal and round. No scleral icterus. No injection or drainage. ENT: No nasal bleeding or discharge. Mucous membranes pink and moist. TMs clear bilaterally NECK: Trachea midline. No JVD. CARDIOVASCULAR: Regular rate and rhythm. No murmur appreciated. RESPIRATORY: No accessory muscle use. Patient does have a very fine inspiratory rales at the end of inspiration on the left base. Otherwise clear throughout the rest of his lung bryant. . Breath sounds equal bilaterally. GASTROINTESTINAL: Abdomen soft, non-tender, nondistended. Hepatic and splenic margins not palpable. MUSCULOSKELETAL: No obvious deformities. No clubbing. No cyanosis. No edema. NEUROLOGICAL: Awake and alert. No obvious cranial nerve deficits. Motor grossly within normal limits. Normal speech. PSYCHIATRIC: Appropriate mood and affect; insight and judgment normal. Course Initial Documented Vital Signs Temperature 100.6 F H 07/14/18 08:40 Pulse Rate 92 H 07/14/18 08:40 Respiratory Rate 17 09/02/18 08:40 Blood Pressure 148/68 H 07/14/18 08:40 Pulse Oximetry 97 07/14/18 08:40 Last Documented Vital Signs Temperature 102.9 F H 07/14/18 10:11 Pulse Rate 95 H 07/14/18 10:11 Respiratory Rate 16 07/14/18 10:11 Blood Pressure 130/76 07/14/18 10:11 Pulse Oximetry 99 07/14/18 10:11 Medical Decision Making MDM Narrative Medical decision making narrative: Patient room to the emergency department, x- ray does confirm a left-sided pneumonia. His white blood cell count 22,000, temperature 102.9, this is sirs criteria and therefore sepsis. He was started on Rocephin and azithromycin, 1 L normal saline given, failure and therefore no need for aggressive fluid resuscitation. Patient was discussed with the residents for admission. Medical Screen Exam Complete: Yes Emergency Medical Condition: Yes Differential Diagnosis Differential Diagnosis: Pneumonia, URI, Sepsis, Cough, Viral syndrome. Lab Data Result diagrams: 07/14/18 09:45 07/14/18 09:45 Lab Results 07/14/18 07/14/18 07/14/18 Range/Units 09:45 09:45 10:46 WBC 22.0 H (4.0-11.0) th/mm3 RBC 4.62 (4.50-5.90) mil/mm3 Hgb 13.4 (13.0-17.0) gm/dL Hct 40.7 (39.0-51.0) % MCV 88.1 (80.0-100.0) fL MCH 29.0 (27.0-34.0) pg MCHC 32.9 (32.0-36.0) % RDW 14.8 (11.6-17.2) % Plt Count 161 (150-450) th/mm3 MPV 8.7 (7.0-11.0) fL Neut % (Auto) 79.5 H (16.0-70.0) % Lymph % (Auto) 14.0 (9.0-44.0) % [place] % (Auto) 6.4 (0.0-8.0) % Eos % (Auto) 0.0 (0.0-4.0) % Baso % (Auto) 0.1 (0.0-2.0) % Neut # (Auto) 17.5 H (1.8-7.7) th/mm3 Lymph # (Auto) 3.1 (1.0-4.8) th/mm3 [place] # (Auto) 1.4 H (0.0-0.9) th/mm3 Eos # (Auto) 0.0 (0.0-0.4) th/mm3 Baso # (Auto) 0.0 (0.0-0.2) th/mm3 WBC Differential . Differential Comment Auto diff final Sodium 136 (136-145) meq/L Potassium 3.6 (3.5-5.1) meq/L Chloride 105 (98-107) meq/L Carbon Dioxide 23.6 (21.0-32.0) meq/L Anion Gap 7 (5-15) meq/L BUN 11 (7-18) mg/dL Creatinine 1.01 (0.60-1.30) mg/dL Estimated GFR Greater than 89 (>89) mL/min Random Glucose 97 (74-106) mg/dL Lactic Acid 2.2 H (0.4-2.0) mmol/L Calcium 8.4 L (8.5-10.1) mg/dL Urine Color (Yellw/Straw) Urine Clarity (Clear) Urine pH (5.0-8.5) Ur Specific [place] (1.002-1.035) Urine Protein (Neg-Trace) mg/dL Urine Glucose (UA) (Negative) mg/dL Urine Ketones (Negative) mg/dL Urine Occult Blood (Negative) Urine Nitrate (Negative) Urine Bilirubin (Negative) Urine Urobilinogen (Less than 2) mg/dL Ur Leukocyte Esterase (Negative) Urine RBC (0-3) /hpf Urine WBC (0-5) /hpf Urine Mucus (Occasional) /lpf Micro UA Comment Ur Microscopic Review Urine Culture Comments 07/14/18 Range/Units 12:30 WBC (4.0-11.0) th/mm3 RBC (4.50-5.90) mil/mm3 Hgb (13.0-17.0) gm/dL Hct (39.0-51.0) % MCV (80.0-100.0) fL MCH (27.0-34.0) pg MCHC (32.0-36.0) % RDW (11.6-17.2) % Plt Count (150-450) th/mm3 MPV (7.0-11.0) fL Neut % (Auto) (16.0-70.0) % Lymph % (Auto) (9.0-44.0) % [place] % (Auto) (0.0-8.0) % Eos % (Auto) (0.0-4.0) % Baso % (Auto) (0.0-2.0) % Neut # (Auto) (1.8-7.7) th/mm3 Lymph # (Auto) (1.0-4.8) th/mm3 [place] # (Auto) (0.0-0.9) th/mm3 Eos # (Auto) (0.0-0.4) th/mm3 Baso # (Auto) (0.0-0.2) th/mm3 WBC Differential Differential Comment Sodium (136-145) meq/L Potassium (3.5-5.1) meq/L Chloride (98-107) meq/L Carbon Dioxide (21.0-32.0) meq/L Anion Gap (5-15) meq/L BUN (7-18) mg/dL Creatinine (0.60-1.30) mg/dL Estimated GFR (>89) mL/min Random Glucose (74-106) mg/dL Lactic Acid (0.4-2.0) mmol/L Calcium (8.5-10.1) mg/dL Urine Color Straw (Yellw/Straw) Urine Clarity Clear (Clear) Urine pH 6.0 (5.0-8.5) Ur Specific [place] 1.002 (1.002-1.035) Urine Protein Negative (Neg-Trace) mg/dL Urine Glucose (UA) Negative (Negative) mg/dL Urine Ketones Negative (Negative) mg/dL Urine Occult Blood Negative (Negative) Urine Nitrate Negative (Negative) Urine Bilirubin Negative (Negative) Urine Urobilinogen Less than 2 (Less than 2) mg/dL Ur Leukocyte Esterase Negative (Negative) Urine RBC Less than 1 (0-3) /hpf Urine WBC Less than 1 (0-5) /hpf Urine Mucus Few H (Occasional) /lpf Micro UA Comment Culture not ind Ur Microscopic Review Not Reportable Urine Culture Comments Culture not ind Imaging Data Radiologist's impression: Chest X-Ray 07/14/18 09:44 CONCLUSION: Left lower lobe airspace disease. Discharge Plan Discharge Disposition Patient Disposition: 30 Still Patient Discharge Details Diagnosis: Sepsis, Pneumonia Physicians Team ED Provider: Nash Booth Attending Provider: Alka Andrade Other Providers: Anila Fontanez Discharge Interventions Interventions: Vital Signs Last Done: 07/14/18 10:11 Status ED Status: Admitted Patient
[2018-07-14] MEDS ORDERED: Azithromycin Inj 500 MG in Sodium Chlor 0.9% Inj 250 ML IV.SIG ONE (11:54)
--- NOTE | 2018-07-14 12:12 | P.HPFP ---
History of Present Illness Primary Care Physician: Wiliam Richardson <LupeAlka 07/15/18 11:07> Wiliam Richardson <Kimberly,Skye 07/14/18 12:12> History of Present Illness: Mr Ge is a 48-year-old male with known history of HIV who is presenting for evaluation of cough. He reports that for the past 3 days he has had a cough is minimally productive of yellow sputum. He has associated rhinorrhea as well as frontal headache with some dizziness. Yesterday he had a fever of 102. He denies any shortness of breath, chest pain , nausea, vomiting. He has been able to eat and drink without difficulty. Similarly he reports some lower abdominal pain that worsens with coughing. He has had some increased urinary frequency but denies true dysuria. He has been in contact with other family members with similar URI symptoms. PMH: HIV, 800CD4 and viral load undetected, more than 6 months ago. Managed by Dr Rafaela CAM Meds: Geoff Meade Sx: None FMH: HTN, both parents Social: Tobacco- never smoker EtOH- once a week Drugs- none <KimberlyRahatSkye E 07/14/18 13:49> - Diagnosis (1) Sepsis (2) Pneumonia (3) Abdominal pain (4) HIV (human immunodeficiency virus infection) (5) Headache (6) Hypertension (7) Nutrition, metabolism, and development symptoms <Alka Andrade 07/15/18 11:07> (1) Sepsis (2) Pneumonia (3) Abdominal pain (4) HIV (human immunodeficiency virus infection) (5) Headache (6) Hypertension (7) Nutrition, metabolism, and development symptoms <KimberlyRahatSkye E 07/14/18 13:14> Inpatient Certification: I certify that the inpatient services were ordered in accordance with Medicare regulations governing the order. This includes certification that hospital inpatient services are reasonable and necessary and in the case of services not specified as inpatient-only under 42 CFR 419.22(n), that they are appropriately provided as inpatient services in accordance to with the 2-midnight benchmark under 43 CFR 412.3(e) <Alka Andrade 07/15/18 11:07> I certify that the inpatient services were ordered in accordance with Medicare regulations governing the order. This includes certification that hospital inpatient services are reasonable and necessary and in the case of services not specified as inpatient-only under 42 CFR 419.22(n), that they are appropriately provided as inpatient services in accordance to with the 2-midnight benchmark under 43 CFR 412.3(e) <Skye Harris 07/14/18 12:12> Review of Systems Constitutional: Reports fever(s), Denies chills, Denies night sweats, Denies weight loss <KimberlySkye Michael 07/14/18 13:49> Ears, Nose, Mouth, and Throat: Denies mouth lesions, Denies pain with swallowing , Denies sore throat <KimberlySkye Michael 07/14/18 13:49> Cardiovascular: Denies chest pain, Denies fainting, Denies leg swelling, Denies lightheadedness <KimberlySkye Michael 07/14/18 13:49> Respiratory: Reports cough, Denies shortness of breath, Denies wheezing < Kimberly,Skye 07/14/18 13:49> Gastrointestinal: Reports abdominal pain, Reports change in bowel habits, Denies black, tarry stools, Denies nausea, Denies vomiting <KimberlySkye Michael 13:49> Genitourinary: Reports urinary frequency, Reports urinary urgency, Denies painful urination, Denies urinary incontinence <KimberlySkye 07/14/18 13:49 > Musculoskeletal: Denies body aches, Denies joint pain <Kimberly,Skye Michael 13:49> PMFSH - History History Provided By: Patient <Rahat Harrisla Michael 07/14/18 12:12> - Medical History Medical History: Medical History (Last Reviewed 07/14/18 @ 08:50 by Karli Gardner RN) HIV (human immunodeficiency virus infection) Hypertension <Alka Andrade - 07/15/18 11:07> Medical History (Last Reviewed 07/14/18 @ 08:50 by Karli Gardner RN) HIV (human immunodeficiency virus infection) Hypertension <Kimberly,Skye E 07/14/18 12:12> - Tobacco History Second Hand Smoke Exposure: No <Kimberly,Skye E 07/14/18 12:12> Tobacco Use In Past 30 Days: No <Skye Harris Michael 07/14/18 12:12> Smoking Status: Never smoker <Skye Harris Michael 07/14/18 12:12> - Alcohol History How Often Do You Have a Drink Containing Alcohol: 2 to 3 times a week <Rahat Harrismarcus Rodriguez 07/14/18 12:12> - Substance Use History Substance History: Past History <Rahat Harrismarcus Rodriguez 07/14/18 12:12> - Travel History Recent Travel in the [place] Within the Last 8 Weeks: No <Rahat Harrismarcus Rodriguez 12:12> Recent Travel Out of the Country Within the Last 8 Weeks: No <Rahat Harrismarcus Rodriguez 07/14/18 12:12> - Immunization History Tetanus Immunization: Unsure <Rahat Harrismarcus Rodriguez 07/14/18 12:12> Hx Influenza Vaccine This Season: Yes <Rahat Harrismarcus Rodriguez 07/14/18 12:12> Medications and Allergies Allergies Allergy/AdvReac Type Severity Reaction Status Date / Time No Known Allergies AdvReac Unknown Uncoded 01/02/18 02:32 <Alka Andrade - 07/15/18 11:07> Home Medications Medication Instructions Recorded Confirmed Type amlodipine [Norvasc] 10 mg PO DAILY 07/14/18 07/14/18 History <Alka Andrade - 07/15/18 11:07> Active Medications: Active Medications Acetaminophen (Tylenol) 650 mg PO Q4H PRN PRN Reason: PAIN SCALE 0-3 OR TEMP> 100.5F Last Admin: 07/14/18 17:41 Dose: 650 mg Al Hydroxide/Mg Hydroxide (Milk Of Magncarlos Liq) 30 ml PO Q12H PRN PRN Reason: Mild Constipation Albuterol (Albuterol Neb (Prn)) 2.5 mg NEB Q6HR NEB PRN PRN Reason: SHORTNESS OF BREATH Albuterol (Duoneb Neb (Ingris)) 1 ampul NEB Q4HR NEB INGRIS Last Admin: 07/15/18 10:08 Dose: 1 ampul Amlodipine Besylate (Norvasc) 10 mg PO DAILY INGRIS Last Admin: 07/15/18 08:16 Dose: 10 mg Emtricitabine/Tenofovir (Truvada 200/300 Mg) 1 tab PO DAILY INGRIS Last Admin: 07/15/18 10:51 Dose: 1 tab Sodium Chloride (Ns Inj) 1,000 mls @ 0 mls/hr IV.SIG BOLUS INGRIS Last Infusion: 07/14/18 11:55 Dose: Infused Azithromycin 500 mg/ Sodium (Chloride) 250 mls @ 250 mls/hr IV.SIG Q24H INGRIS Ceftriaxone Sodium 2,000 mg/ (Sodium Chloride) 100 mls @ 200 mls/hr IV.SIG Q24H INGRIS Senna/Docusate Sodium (Jenna-Colace) 1 tab PO BID INGRIS Last Admin: 07/15/18 08:15 Dose: Not Given Sennosides (Senokot) 17.2 mg PO Q12H PRN PRN Reason: Moderate Constipation <Alka Andrade - 07/15/18 11:07> Active Medications Sodium Chloride (Ns Inj) 1,000 mls @ 0 mls/hr IV.SIG BOLUS INGRIS Last Infusion: 07/14/18 11:55 Dose: Infused Ceftriaxone Sodium 1,000 mg/ (Sodium Chloride) 100 mls @ 200 mls/hr IV.SIG ONCE ONE Stop: 07/14/18 12:23 Azithromycin 500 mg/ Sodium (Chloride) 250 mls @ 250 mls/hr IV.SIG ONCE ONE Stop: 07/14/18 12:53 <Skye Harris - 07/14/18 12:12> Exam Vital signs: Vital Signs 07/14/18 13:00 07/14/18 14:00 07/14/18 14:09 Temperature 99.0 F Pulse Rate 82 Respiratory Rate 19 19 Blood Pressure 132/81 Pulse Oximetry 98 07/14/18 14:34 07/14/18 18:31 07/14/18 20:36 Temperature 98.7 F 102.4 F H 98.9 F Pulse Rate 82 95 H Respiratory Rate 16 18 Blood Pressure 133/91 H 167/78 H Pulse Oximetry 97 97 07/15/18 00:31 07/15/18 04:00 07/15/18 08:00 Temperature 99.5 F 98.5 F 98.5 F Pulse Rate 81 82 76 Respiratory Rate 18 18 18 Blood Pressure 152/90 H 136/89 143/86 H Pulse Oximetry 97 98 99 07/15/18 10:09 Temperature Pulse Rate 75 Respiratory Rate 14 Blood Pressure Pulse Oximetry 99 Intake & Output 07/14/18 07/15/18 07/15/18 18:59 06:59 18:59 Intake Total 1350 / 1350 780 / 780 Output Total 600 / 600 Balance 1350 / 1350 180 / 180 Weight 68.039 kg 68 kg Intake: IV 1350 / 1350 Azithromycin Inj 500 MG In NS 250 / 250 Inj 250 ML @ 250 mls/hr IV.SIG ONCE ONE Rx#:[id number] NS Inj 1,000 ML @ Wide Open IV. 1000 / 1000 SIG BOLUS INGRIS Rx#:[id number] Rocephin Inj 1,000 MG In NS Inj 100 / 100 100 ML @ 200 mls/hr IV.SIG ONCE ONE Rx#:[id number] Oral 780 / 780 Output: Urine 600 / 600 Other: # Voids 3 Date of Last Bowel Movement 07/13/18 07/13/18 07/14/18 <Alka Andrade M - 07/15/18 11:07> Vital Signs 07/14/18 08:40 07/14/18 08:43 07/14/18 09:44 Temperature 100.6 F H Pulse Rate 92 H 95 H 98 H Respiratory Rate 17 20 Blood Pressure 148/68 H 147/89 H Pulse Oximetry 97 98 97 07/14/18 10:11 Temperature 102.9 F H Pulse Rate 95 H Respiratory Rate 16 Blood Pressure 130/76 Pulse Oximetry 99 Intake & Output 07/13/18 07/14/18 07/14/18 18:59 06:59 18:59 Intake Total 1000 / 1000 Balance 1000 / 1000 Weight 68.039 kg Intake: IV 1000 / 1000 NS Inj 1,000 ML @ Wide Open IV. 1000 / 1000 SIG BOLUS INGRIS Rx#:[id number] <Skye Harris E - 07/14/18 12:12> Narrative: GENERAL: Thin male lying in bed resting comfortably no acute distress EYES: Pupils equal and round. No scleral icterus. No injection or drainage. ENT: Mucous membranes pink and moist. NECK: Trachea midline. No lymphadenopathy. No cervical tenderness CARDIOVASCULAR: Regular rate and rhythm. RESPIRATORY: No accessory muscle use. Decreased breath sounds bilateral bases. Coarse vesicular sounds heard in upper right lung field GASTROINTESTINAL: Abdomen soft, minimally tender in epigastric region as well as bilateral lower quadrants, nondistended. Hepatic and splenic margins not palpable. MUSCULOSKELETAL: Extremities without clubbing, cyanosis, or edema. No obvious deformities. Calluses noted on bilateral palms and fingers. Nails of fingers and toes appear thickened yellowed. NEUROLOGICAL: Awake and alert. No obvious cranial nerve deficits. Motor grossly within normal limits. Normal speech. PSYCHIATRIC: Appropriate mood and affect; insight and judgment normal. <Skye aHrris - 07/14/18 13:49> Results - Labs Result diagrams: 07/15/18 06:01 07/15/18 06:01 <Alka Andrade - 07/15/18 11:07> Abnormal lab results 07/14/18 07/14/18 07/14/18 Range/Units 10:46 12:30 14:50 WBC (4.0-11.0) th/mm3 Neut # (Auto) (1.8-7.7) th/mm3 Lymph # (Auto) (1.0-4.8) th/mm3 Chloride 108 H (98-107) meq/L Lactic Acid 2.2 H (0.4-2.0) mmol/L Calcium 7.6 L D (8.5-10.1) mg/dL AST 12 L (15-37) U/L ALT 11 L (12-78) U/L Albumin 2.7 L (3.4-5.0) g/dL Urine Mucus Few H (Occasional) /lpf 07/15/18 07/15/18 Range/Units 06:01 06:01 WBC 17.8 H (4.0-11.0) th/mm3 Neut # (Auto) 11.1 H (1.8-7.7) th/mm3 Lymph # (Auto) 5.8 H (1.0-4.8) th/mm3 Chloride (98-107) meq/L Lactic Acid (0.4-2.0) mmol/L Calcium 8.3 L (8.5-10.1) mg/dL AST (15-37) U/L ALT (12-78) U/L Albumin (3.4-5.0) g/dL Urine Mucus (Occasional) /lpf Short CBC 07/15/18 Range/Units 06:01 WBC 17.8 H (4.0-11.0) th/mm3 Hgb 13.5 (13.0-17.0) gm/dL Hct 40.9 (39.0-51.0) % Plt Count 158 (150-450) th/mm3 [facility] 07/14/18 07/15/18 14:50 06:01 Sodium 138 139 Potassium 3.6 3.7 Chloride 108 H 107 Carbon Dioxide 24.3 26.6 BUN 8 9 Creatinine 0.88 0.89 Calcium 7.6 L D 8.3 L Liver Function 07/14/18 Range/Units 14:50 Total Bilirubin 0.4 (0.2-1.0) mg/dL AST 12 L (15-37) U/L ALT 11 L (12-78) U/L Alkaline Phosphatase 77 (45-117) U/L Albumin 2.7 L (3.4-5.0) g/dL Urine 07/14/18 Range/Units 12:30 Urine Color Straw (Yellw/Straw) Urine Clarity Clear (Clear) Urine pH 6.0 (5.0-8.5) Ur Specific [place] 1.002 (1.002-1.035) Urine Protein Negative (Neg-Trace) mg/dL Urine Glucose (UA) Negative (Negative) mg/dL <Alka Andrade - 07/15/18 11:07> Abnormal lab results 07/14/18 07/14/18 07/14/18 Range/Units 09:45 09:45 10:46 WBC 22.0 H (4.0-11.0) th/mm3 Neut % (Auto) 79.5 H (16.0-70.0) % Neut # (Auto) 17.5 H (1.8-7.7) th/mm3 [place] # (Auto) 1.4 H (0.0-0.9) th/mm3 Lactic Acid 2.2 H (0.4-2.0) mmol/L Calcium 8.4 L (8.5-10.1) mg/dL Short CBC 07/14/18 Range/Units 09:45 WBC 22.0 H (4.0-11.0) th/mm3 Hgb 13.4 (13.0-17.0) gm/dL Hct 40.7 (39.0-51.0) % Plt Count 161 (150-450) th/mm3 [facility] 07/14/18 09:45 Sodium 136 Potassium 3.6 Chloride 105 Carbon Dioxide 23.6 BUN 11 Creatinine 1.01 Calcium 8.4 L <KimberlySkye gonzalez - 07/14/18 12:12> - Imaging Impressions Chest X-Ray 07/14/18 09:44 CONCLUSION: Left lower lobe airspace disease. <Skye Harris - 07/14/18 12:12> Caprini VTE Risk Assessment Caprini VTE Risk Assessment: No/Low Risk (score <= 1) <Skye Harris - 13:49> Caprini Risk Assessment Model: Point Value = 1 Point Value = 2 Point Value = 3 Point Value = 5 Age 41-60 Minor surgery BMI > 25 kg/m2 Swollen legs Varicose veins or History of unexplained or recurrent spontaneous Oral contraceptives or hormone replacement Sepsis (< 1 month) Serious lung disease, including pneumonia (< 1 month) Abnormal pulmonary function Acute myocardial infarction Congestive heart failure (< 1 month) History of inflammatory bowel disease Medical patient at bed rest Age 61-74 Arthroscopic surgery Major open surgery (> 45 min) Laparoscopic surgery (> 45 min) Malignancy Confined to bed (> 72 hours) Immobilizing plaster cast Central venous access Age >= 75 History of VTE Family history of VTE Factor V Leiden Prothrombin [id number] Lupus anticoagulant Anticardiolipin antibodies Elevated serum homocysteine Heparin-induced thrombocytopenia Other congenital or acquired thrombophilia Stroke (< 1 month) Elective arthroplasty Hip, pelvis, or leg fracture Acute spinal cord injury (< 1 month) <Alka Andrade - 07/15/18 11:07> Point Value = 1 Point Value = 2 Point Value = 3 Point Value = 5 Age 41-60 Minor surgery BMI > 25 kg/m2 Swollen legs Varicose veins or History of unexplained or recurrent spontaneous Oral contraceptives or hormone replacement Sepsis (< 1 month) Serious lung disease, including pneumonia (< 1 month) Abnormal pulmonary function Acute myocardial infarction Congestive heart failure (< 1 month) History of inflammatory bowel disease Medical patient at bed rest Age 61-74 Arthroscopic surgery Major open surgery (> 45 min) Laparoscopic surgery (> 45 min) Malignancy Confined to bed (> 72 hours) Immobilizing plaster cast Central venous access Age >= 75 History of VTE Family history of VTE Factor V Leiden Prothrombin [id number] Lupus anticoagulant Anticardiolipin antibodies Elevated serum homocysteine Heparin-induced thrombocytopenia Other congenital or acquired thrombophilia Stroke (< 1 month) Elective arthroplasty Hip, pelvis, or leg fracture Acute spinal cord injury (< 1 month) <Skye Harris - 07/14/18 12:12> Prophylaxis Regimen: Total Risk Factor Score Risk Level Prophylaxis Regimen 0-1 Low Early ambulation 2 Moderate Order ONE of the following: *Sequential Compression Device (SCD) *Heparin 5000 units SQ BID 3-4 Higher Order ONE of the following medications: *Heparin 5000 units SQ TID *Enoxaparin/Lovenox 40 mg SQ daily (WT < 150 kg, CrCl > 30 mL/min) *Enoxaparin/Lovenox 30 mg SQ daily (WT < 150 kg, CrCl > 10-29 mL/min) *Enoxaparin/Lovenox 30 mg SQ BID (WT < 150 kg, CrCl > 30 mL/min) AND/OR *Sequential Compression Device (SCD) 5 or more Highest Order ONE of the following medications: *Heparin 5000 units SQ TID (Preferred with Epidurals) *Enoxaparin/Lovenox 40 mg SQ daily (WT < 150 kg, CrCl > 30 mL/min) *Enoxaparin/Lovenox 30 mg SQ daily (WT < 150 kg, CrCl > 10-29 mL/min) *Enoxaparin/Lovenox 30 mg SQ BID (WT < 150 kg, CrCl > 30 mL/min) AND *Sequential Compression Device (SCD) <Alka Andrade - 07/15/18 11:07> Total Risk Factor Score Risk Level Prophylaxis Regimen 0-1 Low Early ambulation 2 Moderate Order ONE of the following: *Sequential Compression Device (SCD) *Heparin 5000 units SQ BID 3-4 Higher Order ONE of the following medications: *Heparin 5000 units SQ TID *Enoxaparin/Lovenox 40 mg SQ daily (WT < 150 kg, CrCl > 30 mL/min) *Enoxaparin/Lovenox 30 mg SQ daily (WT < 150 kg, CrCl > 10-29 mL/min) *Enoxaparin/Lovenox 30 mg SQ BID (WT < 150 kg, CrCl > 30 mL/min) AND/OR *Sequential Compression Device (SCD) 5 or more Highest Order ONE of the following medications: *Heparin 5000 units SQ TID (Preferred with Epidurals) *Enoxaparin/Lovenox 40 mg SQ daily (WT < 150 kg, CrCl > 30 mL/min) *Enoxaparin/Lovenox 30 mg SQ daily (WT < 150 kg, CrCl > 10-29 mL/min) *Enoxaparin/Lovenox 30 mg SQ BID (WT < 150 kg, CrCl > 30 mL/min) AND *Sequential Compression Device (SCD) <Skye Harris - 07/14/18 12:12> Assessment and Plan - Assessment (1) Sepsis Code(s): A41.9 - Sepsis, unspecified organism Status: Acute (2) Pneumonia Code(s): J18.9 - Pneumonia, unspecified organism Status: Acute (3) Abdominal pain Code(s): R10.9 - Unspecified abdominal pain Status: Acute (4) HIV (human immunodeficiency virus infection) Code(s): B20 - Human immunodeficiency virus [HIV] disease Status: Acute (5) Headache Code(s): R51 - Headache Status: Acute (6) Hypertension Code(s): I10 - Essential (primary) hypertension Status: Acute (7) Nutrition, metabolism, and development symptoms Code(s): R63.8 - Other symptoms and signs concerning food and fluid intake Status: Acute <Alka Andrade - 07/15/18 11:07> (1) Sepsis Code(s): A41.9 - Sepsis, unspecified organism Status: Acute Plan: Patient met sepsis criteria [place] [address], temperature 102.9, heart rate 95 and chest x-ray consistent with left lower lobe pneumonia. -Blood cultures drawn -Lactic acid on admission was 2.2 -Patient given 1 L normal saline bolus in the ED. -Patient given 1 dose azithromycin 500mg in ED -IV antibiotics: azithromycin 500mg q24hr and ceftriaxone 2g q 24hr -Tylenol for fevers greater than 100.5 -PO fluids for now as patient tolerates hemodynamically -Repeat lactic acid later today -F/u blood cultures (2) Pneumonia Code(s): J18.9 - Pneumonia, unspecified organism Status: Acute Plan: Evidence of L lower lobe airspace disease on chest xray Patient has no recent hospitalizations or acute care facilities Patient SpO2 97-99 on room air -Treatment for CAP with antibiotics as above -Pneumococcal and legionella urine antigens -Sputum culture, respiratory panel, quantiferon gold testing as patient is HIV positive -Albuterol nebulizer q4 PRN (3) Abdominal pain Code(s): R10.9 - Unspecified abdominal pain Status: Acute Plan: Patient reports that he sometimes takes Goody's powder for headaches, but denies excess usage. No recent melena noted -Urinalysis ordered -Legionella antigens ordered -Hemoccult ordered -CMP added to blood in lab for baseline liver function and albumin (4) HIV (human immunodeficiency virus infection) Code(s): B20 - Human immunodeficiency virus [HIV] disease Status: Acute Plan: Patient states that he has been on antiviral therapy and he is consistent with that. He denies any AIDS defining illnesses. Does report that his last CD4 count was at least 6 months ago -HIV viral load, CD4 count (lymphocyte profile) ordered -Infectious disease consulted, recommendations appreciated (5) Headache Code(s): R51 - Headache Status: Acute Plan: Appears to be tension type in nature, patient denies any vision changes, photophonophobia -Tylenol as needed -Continue to monitor (6) Hypertension Code(s): I10 - Essential (primary) hypertension Status: Acute Plan: Continue home Norvasc (7) Nutrition, metabolism, and development symptoms Code(s): R63.8 - Other symptoms and signs concerning food and fluid intake Status: Acute Plan: Diet: Regular diet Fluids: P.o. for now, patient is status post 1 L bolus in the ED DVT prophylaxis: SCDs only for now pending Hemoccult results <Skye Harris E - 07/14/18 13:14> - Assessment and Plan Discussed Condition With: Pernell Bowen and Lupe <Skye Harris - 07/14/18 13:49> - Attending Attestation The exam, history, and the medical decision-making described in the above note were completed with the assistance of the resident physician. I reviewed and agree with the findings presented. I attest that I had a [id number] encounter with the patient on the same day, and personally performed and documented my assessment and findings in the medical record. I saw this gentleman on the day of admission. A few concerning things that he relayed to me included a weight loss of probably 40-50 pounds over the past several months. He stated he is been staying [facility] at a [facility] and has been exposed to a lot of sick people who were coughing. <Alka Andrade - 07/15/18 11:07>
[2018-07-14] MEDS ORDERED: Acetaminophen 325 MG Tablet PO PRN (12:18)
[2018-07-14 13:20] LABS: Bilirubin,Urine Negative (Negative); Clarity,Urine Clear (Clear); Color,Urine Straw (Yellw/Straw); Glucose,Urine (UA) Negative (Negative); Leukocyte Esterase,Urine Negative (Negative); Mucus,Urine Few /lpf (Occasional); Nitrite,Urine Negative (Negative); Specific Gravity,Urine 1.002 (1.002-1.035)
[2018-07-14 15:34] LABS: Alanine Aminotransferase 11 U/L (12-78); Albumin 2.7 g/dL (3.4-5.0); Alkaline Phosphatase 77 U/L (45-117); Anion Gap 6 meq/L (5-15); Aspartate Aminotransferase 12 U/L (15-37); Blood Urea Nitrogen 8 mg/dL (7-18); Calcium 7.6 mg/dL (8.5-10.1); Carbon Dioxide 24.3 meq/L (21.0-32.0); Chloride 108 meq/L (98-107); Glomerular Filtration Rate Greater Than 89 mL/min (>89); Glucose,Random 94 mg/dL (74-106); Potassium 3.6 meq/L (3.5-5.1); Sodium 138 meq/L (136-145); Total Protein 7.9 g/dL (6.4-8.2)
[2018-07-14] MEDS: Senna/Docusate Sodium 8.6/50 MG Tablet PO SCH (20:53)
[2018-07-15 07:32] LABS: Baso % (Auto) 0.2 % (0.0-2.0); Eos % (Auto) 0.2 % (0.0-4.0); Hematocrit 40.9 % (39.0-51.0); Hemoglobin 13.5 gm/dL (13.0-17.0); Lymph # (Auto) 5.8 th/mm3 (1.0-4.8); Lymph % (Auto) 32.7 % (9.0-44.0); Mean Corpuscular HGB Conc 33.1 % (32.0-36.0); Mean Corpuscular Hemoglobin 29.1 pg (27.0-34.0); Mean Platelet Volume 8.8 fL (7.0-11.0); Mono # (Auto) 0.8 th/mm3 (0.0-0.9); Mono % (Auto) 4.2 % (0.0-8.0); Neut # (Auto) 11.1 th/mm3 (1.8-7.7); Neut % (Auto) 62.7 % (16.0-70.0); Platelet Count 158 th/mm3 (150-450); Red Blood Count 4.65 mil/mm3 (4.50-5.90); Red Cell Distribution Width 14.4 % (11.6-17.2); White Blood Count 17.8 th/mm3 (4.0-11.0)
[2018-07-15 07:44] LABS: Anion Gap 5 meq/L (5-15); Blood Urea Nitrogen 9 mg/dL (7-18); Calcium 8.3 mg/dL (8.5-10.1); Carbon Dioxide 26.6 meq/L (21.0-32.0); Chloride 107 meq/L (98-107); Glomerular Filtration Rate Greater Than 89 mL/min (>89); Glucose,Random 84 mg/dL (74-106); Potassium 3.7 meq/L (3.5-5.1); Sodium 139 meq/L (136-145)
[2018-07-15] MEDS: Senna/Docusate Sodium 8.6/50 MG Tablet PO SCH ×2 (08:15→21:28)
[2018-07-15] MEDS: amLODIPine 10 MG Tablet PO SCH (08:16)
--- NOTE | 2018-07-15 09:27 | P.HPFP ---
History of Present Illness Primary Care Physician: Wiliam Richardson History of Present Illness: Mr Ge is a 48-year-old male with known history of HIV who is presenting for evaluation of cough. He reports that for the past 3 days prior to admission he has had a cough that is minimally productive of yellow sputum. He has associated rhinorrhea as well as frontal headache with some dizziness. Yesterday he had a fever of 102. He denied any shortness of breath, chest pain , nausea, vomiting on admission he has been able to eat and drink without difficulty. Similarly he reports some lower abdominal pain that worsens with coughing. He has had some increased urinary frequency but denies true dysuria. He has been in contact with other family members with similar URI symptoms. He also reported a 40-50 pound weight loss by his estimation over the past several months and staying in a homeless care home. Unfortunately he did not bring his HIV medicines which are currently at the homeless care home. He did work them up on the Internet and was able to point out which medicines he was taking. However there was some question about some overlap with the medicines. The only pharmacy that he is gone to is [facility] which is a local pharmacy and likely is not open on . He also stated he has not been there for a while and he is going to his regular HIV doctor to get his medicines. He says the doctor hands and the medicines when he is in the clinic. PMH: HIV, 800CD4 and viral load undetected, more than 6 months ago. Managed by Dr Russo or a different infectious disease doctor according to him today. HTN Meds: Genvoya Tridel [facility] Sx: None FMH: HTN, both parents Social: Tobacco- never smoker EtOH- once a week Drugs- none - Diagnosis (1) Sepsis (2) Pneumonia (3) Abdominal pain (4) HIV (human immunodeficiency virus infection) (5) Headache (6) Hypertension (7) Nutrition, metabolism, and development symptoms Inpatient Certification: I certify that the inpatient services were ordered in accordance with Medicare regulations governing the order. This includes certification that hospital inpatient services are reasonable and necessary and in the case of services not specified as inpatient-only under 42 CFR 419.22(n), that they are appropriately provided as inpatient services in accordance to with the 2-midnight benchmark under 43 CFR 412.3(e) Estimated Total Length of Stay (Days): 3 Plans for Post Hospital Care: Home Review of Systems other (See history from yesterday) [facility] - History History Provided By: Patient - Medical History Medical History: Medical History (Last Reviewed 07/14/18 @ 08:50 by Karli Gardner RN) HIV (human immunodeficiency virus infection) Hypertension - Tobacco History Second Hand Smoke Exposure: No Tobacco Use In Past 30 Days: No Smoking Status: Never smoker - Alcohol History How Often Do You Have a Drink Containing Alcohol: 2 to 4 times a month - Substance Use History Substance History: No History of Abuse - Travel History Recent Travel in the [place] Within the Last 8 Weeks: No Recent Travel Out of the Country Within the Last 8 Weeks: No - Immunization History Tetanus Immunization: >5 Years Hx Influenza Vaccine This Season: No Medications and Allergies Active Medications: Active Medications Acetaminophen (Tylenol) 650 mg PO Q4H PRN PRN Reason: PAIN SCALE 0-3 OR TEMP> 100.5F Last Admin: 07/14/18 17:41 Dose: 650 mg Al Hydroxide/Mg Hydroxide (Milk Of Robbi Bentley) 30 ml PO Q12H PRN PRN Reason: Mild Constipation Albuterol (Albuterol Neb (Prn)) 2.5 mg NEB Q6HR NEB PRN PRN Reason: SHORTNESS OF BREATH Albuterol (Duoneb Neb (Ingris)) 1 ampul NEB Q4HR NEB INGRIS Amlodipine Besylate (Norvasc) 10 mg PO DAILY INGRIS Last Admin: 07/15/18 08:16 Dose: 10 mg Sodium Chloride (Ns Inj) 1,000 mls @ 0 mls/hr IV.SIG BOLUS [facility] Last Infusion: 07/14/18 11:55 Dose: Infused Azithromycin 500 mg/ Sodium (Chloride) 250 mls @ 250 mls/hr IV.SIG Q24H INGRIS Ceftriaxone Sodium 2,000 mg/ (Sodium Chloride) 100 mls @ 200 mls/hr IV.SIG Q24H INGRIS Senna/Docusate Sodium (Jenna-Colace) 1 tab PO BID INGRIS Last Admin: 07/15/18 08:15 Dose: Not Given Sennosides (Senokot) 17.2 mg PO Q12H PRN PRN Reason: Moderate Constipation Allergies Allergy/AdvReac Type Severity Reaction Status Date / Time No Known Allergies AdvReac Unknown Uncoded 01/02/18 02:32 Home Medications Medication Instructions Recorded Confirmed Type amlodipine [Norvasc] 10 mg PO DAILY 07/14/18 07/14/18 History Exam Vital signs: Vital Signs 07/14/18 09:44 07/14/18 10:11 07/14/18 13:00 Temperature 102.9 F H 99.0 F Pulse Rate 98 H 95 H Respiratory Rate 16 Blood Pressure 130/76 Pulse Oximetry 97 99 07/14/18 14:00 07/14/18 14:09 07/14/18 14:34 Temperature 98.7 F Pulse Rate 82 82 Respiratory Rate 19 19 16 Blood Pressure 132/81 133/91 H Pulse Oximetry 98 97 07/14/18 18:31 07/14/18 20:36 07/15/18 00:31 Temperature 102.4 F H 98.9 F 99.5 F Pulse Rate 95 H 81 Respiratory Rate 18 18 Blood Pressure 167/78 H 152/90 H Pulse Oximetry 97 97 07/15/18 04:00 07/15/18 08:00 Temperature 98.5 F 98.5 F Pulse Rate 82 76 Respiratory Rate 18 18 Blood Pressure 136/89 143/86 H Pulse Oximetry 98 99 Intake & Output 07/14/18 07/15/18 07/15/18 18:59 06:59 18:59 Intake Total 1350 / 1350 780 / 780 Output Total 600 / 600 Balance 1350 / 1350 180 / 180 Weight 68.039 kg 68 kg Intake: IV 1350 / 1350 Azithromycin Inj 500 MG In NS 250 / 250 Inj 250 ML @ 250 mls/hr IV.SIG ONCE ONE Rx#:[id number] NS Inj 1,000 ML @ Wide Open IV. 1000 / 1000 SIG BOLUS INGRIS Rx#:[id number] Rocephin Inj 1,000 MG In NS Inj 100 / 100 100 ML @ 200 mls/hr IV.SIG ONCE ONE Rx#:[id number] Oral 780 / 780 Output: Urine 600 / 600 Other: # Voids 3 Date of Last Bowel Movement 07/13/18 07/13/18 07/14/18 Narrative: GENERAL: Thin gentleman complaining about shortness of breath with good oxygenation on his O2 sats. Not using accessory muscles. Able to speak in full sentences. SKIN: Warm and dry. Multiple tattoos. HEAD: Normocephalic. EYES: No scleral icterus. No injection or drainage. NECK: Supple, trachea midline. No JVD or lymphadenopathy. CARDIOVASCULAR: Regular rate and rhythm without murmurs, gallops, or rubs. RESPIRATORY: Breath sounds equal bilaterally. No accessory muscle use. No wheezes, few scattered rhonchi GASTROINTESTINAL: Abdomen soft, non-tender, nondistended. MUSCULOSKELETAL: No cyanosis, or edema. BACK: Nontender without obvious deformity. No CVA tenderness. neuro alert conversant and oriented moving all extremities Results - Labs Result diagrams: 07/15/18 06:01 07/15/18 06:01 Abnormal lab results 07/14/18 07/14/18 07/14/18 Range/Units 09:45 09:45 10:46 WBC 22.0 H (4.0-11.0) th/mm3 Neut % (Auto) 79.5 H (16.0-70.0) % Neut # (Auto) 17.5 H (1.8-7.7) th/mm3 Lymph # (Auto) (1.0-4.8) th/mm3 Lagrange # (Auto) 1.4 H (0.0-0.9) th/mm3 Chloride (98-107) meq/L Lactic Acid 2.2 H (0.4-2.0) mmol/L Calcium 8.4 L (8.5-10.1) mg/dL AST (15-37) U/L ALT (12-78) U/L Albumin (3.4-5.0) g/dL Urine Mucus (Occasional) /lpf 07/14/18 07/14/18 07/15/18 Range/Units 12:30 14:50 06:01 WBC 17.8 H (4.0-11.0) th/mm3 Neut % (Auto) (16.0-70.0) % Neut # (Auto) 11.1 H (1.8-7.7) th/mm3 Lymph # (Auto) 5.8 H (1.0-4.8) th/mm3 Lagrange # (Auto) (0.0-0.9) th/mm3 Chloride 108 H (98-107) meq/L Lactic Acid (0.4-2.0) mmol/L Calcium 7.6 L D (8.5-10.1) mg/dL AST 12 L (15-37) U/L ALT 11 L (12-78) U/L Albumin 2.7 L (3.4-5.0) g/dL Urine Mucus Few H (Occasional) /lpf 07/15/18 Range/Units 06:01 WBC (4.0-11.0) th/mm3 Neut % (Auto) (16.0-70.0) % Neut # (Auto) (1.8-7.7) th/mm3 Lymph # (Auto) (1.0-4.8) th/mm3 Lagrange # (Auto) (0.0-0.9) th/mm3 Chloride (98-107) meq/L Lactic Acid (0.4-2.0) mmol/L Calcium 8.3 L (8.5-10.1) mg/dL AST (15-37) U/L ALT (12-78) U/L Albumin (3.4-5.0) g/dL Urine Mucus (Occasional) /lpf Short CBC 07/14/18 07/15/18 Range/Units 09:45 06:01 WBC 22.0 H 17.8 H (4.0-11.0) th/mm3 Hgb 13.4 13.5 (13.0-17.0) gm/dL Hct 40.7 40.9 (39.0-51.0) % Plt Count 161 158 (150-450) th/mm3 BMP 07/14/18 07/14/18 07/15/18 09:45 14:50 06:01 Sodium 136 138 139 Potassium 3.6 3.6 3.7 Chloride 105 108 H 107 Carbon Dioxide 23.6 24.3 26.6 BUN 11 8 9 Creatinine 1.01 0.88 0.89 Calcium 8.4 L 7.6 L D 8.3 L Liver Function 07/14/18 Range/Units 14:50 Total Bilirubin 0.4 (0.2-1.0) mg/dL AST 12 L (15-37) U/L ALT 11 L (12-78) U/L Alkaline Phosphatase 77 (45-117) U/L Albumin 2.7 L (3.4-5.0) g/dL Urine 07/14/18 Range/Units 12:30 Urine Color Straw (Yellw/Straw) Urine Clarity Clear (Clear) Urine pH 6.0 (5.0-8.5) Ur Specific Farrell 1.002 (1.002-1.035) Urine Protein Negative (Neg-Trace) mg/dL Urine Glucose (UA) Negative (Negative) mg/dL - Imaging Impressions Chest X-Ray 07/14/18 09:44 CONCLUSION: Left lower lobe airspace disease. Caprini VTE Risk Assessment Caprini VTE Risk Assessment: No/Low Risk (score <= 1) Caprini Risk Assessment Model: Point Value = 1 Point Value = 2 Point Value = 3 Point Value = 5 Age 41-60 Minor surgery BMI > 25 kg/m2 Swollen legs Varicose veins or History of unexplained or recurrent spontaneous Oral contraceptives or hormone replacement Sepsis (< 1 month) Serious lung disease, including pneumonia (< 1 month) Abnormal pulmonary function Acute myocardial infarction Congestive heart failure (< 1 month) History of inflammatory bowel disease Medical patient at bed rest Age 61-74 Arthroscopic surgery Major open surgery (> 45 min) Laparoscopic surgery (> 45 min) Malignancy Confined to bed (> 72 hours) Immobilizing plaster cast Central venous access Age >= 75 History of VTE Family history of VTE Factor V Leiden Prothrombin [id number] Lupus anticoagulant Anticardiolipin antibodies Elevated serum homocysteine Heparin-induced thrombocytopenia Other congenital or acquired thrombophilia Stroke (< 1 month) Elective arthroplasty Hip, pelvis, or leg fracture Acute spinal cord injury (< 1 month) Prophylaxis Regimen: Total Risk Factor Score Risk Level Prophylaxis Regimen 0-1 Low Early ambulation 2 Moderate Order ONE of the following: *Sequential Compression Device (SCD) *Heparin 5000 units SQ BID 3-4 Higher Order ONE of the following medications: *Heparin 5000 units SQ TID *Enoxaparin/Lovenox 40 mg SQ daily (WT < 150 kg, CrCl > 30 mL/min) *Enoxaparin/Lovenox 30 mg SQ daily (WT < 150 kg, CrCl > 10-29 mL/min) *Enoxaparin/Lovenox 30 mg SQ BID (WT < 150 kg, CrCl > 30 mL/min) AND/OR *Sequential Compression Device (SCD) 5 or more Highest Order ONE of the following medications: *Heparin 5000 units SQ TID (Preferred with Epidurals) *Enoxaparin/Lovenox 40 mg SQ daily (WT < 150 kg, CrCl > 30 mL/min) *Enoxaparin/Lovenox 30 mg SQ daily (WT < 150 kg, CrCl > 10-29 mL/min) *Enoxaparin/Lovenox 30 mg SQ BID (WT < 150 kg, CrCl > 30 mL/min) AND *Sequential Compression Device (SCD) Assessment and Plan - Assessment (1) Sepsis Code(s): A41.9 - Sepsis, unspecified organism Status: Acute Plan: [place] met sepsis criteria [place] [address], temperature 102.9, heart rate 95 and chest x-ray consistent with left lower lobe pneumonia. -Blood cultures drawn -Lactic acid on admission was 2.2 -Patient given 1 L normal saline bolus in the ED. -Patient given 1 dose azithromycin 500mg in ED -IV antibiotics: azithromycin 500mg q24hr and ceftriaxone 2g q 24hr -Tylenol for fevers greater than 100.5 -PO fluids for now as patient tolerates hemodynamically -Repeated lactic acid -F/u blood cultures His chest x-ray is not remarkable for a huge pneumonia. He does have the fevers , shortness of breath and is sick from pneumonia. With his HIV status unknown CD4 count has been ordered and is pending. 6 months ago he was not taking his HIV medication. There is a concern that he could be getting possibly some end- stage problems from his HIV. Clinically he feels a lot worse than he looks paper. He is being evaluated for TB which is possible with an HIV status and being at the homeless care home and the weight loss. How however it is not a sort of classic presentation since he is only had the fevers for a few days. Pneumocystis needs to be considered as it is unknown what is CD4 count is at this moment. He is on the treatment for an outpatient pneumonia and his white count did respond however clinically he is still feeling poorly and is not able to walk a lot in the room. When we saw him this morning he had not had any breathing treatments at all and was not on oxygen so those 2 things are ordered and hopefully it helps him to feel improved. (2) Pneumonia Code(s): J18.9 - Pneumonia, unspecified organism Status: Acute Plan: Evidence of L lower lobe airspace disease on chest xray Patient has no recent hospitalizations or acute care facilities Patient SpO2 97-99 on room air -Treatment for CAP with antibiotics as above -Pneumococcal and legionella urine antigens -Sputum culture, respiratory panel, quantiferon gold testing as patient is HIV positive -Albuterol nebulizer q4 PRN ordered a nebulizer treatment this morning since he has not had any. We will place him on 2 L of nasal cannula for his comfort. Before discharge he will need a oxygen walk test. He complains about greatly increased shortness of breath when he is walking to the bathroom and back. If he clinically looks like he is deteriorating as far as his respiratory status any patient with serious breathing problems that could possibly end up on a ventilator needs to be transferred to intensive care so that they he can be watched closely. Assessment this morning he is not using accessory muscles he is speaking in full sentences so I am comfortable at this time simply watching him on the floor. (3) Abdominal pain Code(s): R10.9 - Unspecified abdominal pain Status: Acute Plan: Patient reports that he sometimes takes Goody's powder for headaches, but denies excess usage. No recent melena noted -Urinalysis ordered -Legionella antigens ordered -Hemoccult ordered -CMP added to blood in lab for baseline liver function and albumin He stated he will eat if given food. He had eaten his diet so will order an sure to try to help prevent weight loss. (4) HIV (human immunodeficiency virus infection) Code(s): B20 - Human immunodeficiency virus [HIV] disease Status: Acute Plan: Patient states that he has been on antiviral therapy and he is consistent with that. He denies any AIDS defining illnesses. Does report that his last CD4 count was at least 6 months ago -HIV viral load, CD4 count (lymphocyte profile) ordered -Infectious disease consulted, recommendations appreciated. Obviously no adjustments in his HIV medicine will be done in as an inpatient however there is a concern about him having pneumocystis possibly or TB or some other cause of an infectious pneumonia. His medicines are at the homeless care home and he has no access to so we called the pharmacy and ordered the medication that had available and will be able to order his other medicine to have it for tomorrow. (5) Headache Code(s): R51 - Headache Status: Acute Plan: Appears to be tension type in nature, patient denies any vision changes, photophobia -Tylenol as needed -Continue to monitor Was not complaining of a headache today (6) Hypertension Code(s): I10 - Essential (primary) hypertension Status: Acute Plan: Continue home Norvasc (7) Nutrition, metabolism, and development symptoms Code(s): R63.8 - Other symptoms and signs concerning food and fluid intake Status: Acute Plan: Diet: Regular diet Fluids: P.o. for now, patient is status post 1 L bolus in the ED DVT prophylaxis: SCDs only for now pending Hemoccult results H&P: Quality - VTE Deep Vein Thrombosis/Pulmonary Embolism Present on Admission: No (1) Sepsis Qualifiers: Sepsis type: sepsis due to unspecified organism Qualified Code(s): A41.9 - Sepsis, unspecified organism (2) Pneumonia Qualifiers: Pneumonia type: due to unspecified organism (3) Abdominal pain Qualifiers: Abdominal location: periumbilical Qualified Code(s): R10.33 - Periumbilical pain (6) Hypertension Qualifiers: Hypertension type: essential hypertension Qualified Code(s): I10 - Essential (primary) hypertension
[2018-07-15 11:15] LABS: Eosinophils 1 % (0-4); Lymphocytes 36 % (9-44); Monocytes 1 % (0-8); RBC Morphology Normal (Normal)
[2018-07-15 11:16] LABS: Platelet Estimate Normal (Normal); Platelet Morphology Normal (Normal)
--- NOTE | 2018-07-15 11:46 | ED ---
HPI General Chief complaint: Fever Stated complaint: Fever/headache Time Seen by Provider: 07/14/18 08:55 History of Present Illness HPI narrative: Patient is a 48 year old male presents to the ER for evaluation of Related Data Home Medications Medication Instructions Recorded Confirmed amlodipine [Norvasc] 10 mg PO DAILY 07/14/18 07/14/18 Allergies Allergy/AdvReac Type Severity Reaction Status Date / Time No Known Allergies AdvReac Unknown Uncoded 01/02/18 02:32 Review of Systems Neurologic Denies syncope [facility] Social History Social History Substance History: No History of Abuse Second Hand Smoke Exposure: No Smoking Status: Never smoker How Often Do You Have a Drink Containing Alcohol: 2 to 4 times a month Recent Travel in [facility] within the Last 8 Weeks: No Recent Out of Country Travel within the Last 8 Weeks: No Immunization History Tetanus Immunization: Unsure Hx Influenza Vaccine This Season: Yes Course Initial Documented Vital Signs Temperature 100.6 F H 07/14/18 08:40 Pulse Rate 92 H 07/14/18 08:40 Respiratory Rate 17 07/14/18 08:40 Blood Pressure 148/68 H 07/14/18 08:40 Pulse Oximetry 97 07/14/18 08:40 Last Documented Vital Signs Temperature 98.5 F 07/15/18 08:00 Pulse Rate 75 07/15/18 10:09 Respiratory Rate 14 07/15/18 10:09 Blood Pressure 143/86 H 07/15/18 08:00 Pulse Oximetry 99 07/15/18 10:09 Medical Decision Making Lab Data Result diagrams: 07/15/18 06:01 07/15/18 06:01 Lab Results 07/14/18 07/14/18 07/14/18 Range/Units 09:45 09:45 10:46 WBC 22.0 H (4.0-11.0) th/mm3 RBC 4.62 (4.50-5.90) mil/mm3 Hgb 13.4 (13.0-17.0) gm/dL Hct 40.7 (39.0-51.0) % MCV 88.1 (80.0-100.0) fL MCH 29.0 (27.0-34.0) pg MCHC 32.9 (32.0-36.0) % RDW 14.8 (11.6-17.2) % Plt Count 161 (150-450) th/mm3 MPV 8.7 (7.0-11.0) fL Prelim Diff (Auto) Neut % (Auto) 79.5 H (16.0-70.0) % Lymph % (Auto) 14.0 (9.0-44.0) % Moore % (Auto) 6.4 (0.0-8.0) % Eos % (Auto) 0.0 (0.0-4.0) % Baso % (Auto) 0.1 (0.0-2.0) % Neut # (Auto) 17.5 H (1.8-7.7) th/mm3 Lymph # (Auto) 3.1 (1.0-4.8) th/mm3 Moore # (Auto) 1.4 H (0.0-0.9) th/mm3 Eos # (Auto) 0.0 (0.0-0.4) th/mm3 Baso # (Auto) 0.0 (0.0-0.2) th/mm3 WBC Differential . Seg Neuts % (Manual) (16-70) % Band Neuts % (Manual) (0-6) % Lymphocytes % (Manual) (9-44) % Monocytes % (Manual) (0-8) % Eosinophils % (Manual) (0-4) % Basophils % (Manual) (0-2) % Abs Neuts (Manual) (1.8-7.7) th/mm3 Differential Comment Auto diff final Platelet Estimate (Normal) Platelet Morphology (Normal) RBC Morphology (Normal) Sodium 136 (136-145) meq/L Potassium 3.6 (3.5-5.1) meq/L Chloride 105 (98-107) meq/L Carbon Dioxide 23.6 (21.0-32.0) meq/L Anion Gap 7 (5-15) meq/L BUN 11 (7-18) mg/dL Creatinine 1.01 (0.60-1.30) mg/dL Estimated GFR Greater than 89 (>89) mL/min Random Glucose 97 (74-106) mg/dL Lactic Acid 2.2 H (0.4-2.0) mmol/L Calcium 8.4 L (8.5-10.1) mg/dL Total Bilirubin (0.2-1.0) mg/dL AST (15-37) U/L ALT (12-78) U/L Alkaline Phosphatase (45-117) U/L Total Protein (6.4-8.2) g/dL Albumin (3.4-5.0) g/dL Urine Color (Yellw/Straw) Urine Clarity (Clear) Urine pH (5.0-8.5) Ur Specific [place] (1.002-1.035) Urine Protein (Neg-Trace) mg/dL Urine Glucose (UA) (Negative) mg/dL Urine Ketones (Negative) mg/dL Urine Occult Blood (Negative) Urine Nitrate (Negative) Urine Bilirubin (Negative) Urine Urobilinogen (Less than 2) mg/dL Ur Leukocyte Esterase (Negative) Urine RBC (0-3) /hpf Urine WBC (0-5) /hpf Urine Mucus (Occasional) /lpf Micro UA Comment Ur Microscopic Review Urine Culture Comments Adenovirus (PCR) (Not Detect) Bordetella holmesii PCR (Not Detect) B. pertussis DNA (PCR) (Not Detect) B. paraper/bronch (PCR) (Not Detect) Human Metapneumovir PCR (Not Detect) Influenza A (RT-PCR) (Not Detect) Influenza A (H1) PCR (Not Detect) Influenza A (H3) PCR (Not Detect) Influenza B (RT-PCR) (Not Detect) Parainfluenza 1 (PCR) (Not Detect) Parainfluenza 2 (PCR) (Not Detect) Parainfluenza 3 (PCR) (Not Detect) Parainfluenza 4 (PCR) (Not Detect) RSV Type A (PCR) (Not Detect) RSV Type B (PCR) (Not Detect) Rhinovirus (PCR) (Not Detect) 07/14/18 07/14/18 07/14/18 Range/Units 12:30 14:50 14:50 WBC (4.0-11.0) th/mm3 RBC (4.50-5.90) mil/mm3 Hgb (13.0-17.0) gm/dL Hct (39.0-51.0) % MCV (80.0-100.0) fL MCH (27.0-34.0) pg MCHC (32.0-36.0) % RDW (11.6-17.2) % Plt Count (150-450) th/mm3 MPV (7.0-11.0) fL Prelim Diff (Auto) Neut % (Auto) (16.0-70.0) % Lymph % (Auto) (9.0-44.0) % Moore % (Auto) (0.0-8.0) % Eos % (Auto) (0.0-4.0) % Baso % (Auto) (0.0-2.0) % Neut # (Auto) (1.8-7.7) th/mm3 Lymph # (Auto) (1.0-4.8) th/mm3 Moore # (Auto) (0.0-0.9) th/mm3 Eos # (Auto) (0.0-0.4) th/mm3 Baso # (Auto) (0.0-0.2) th/mm3 WBC Differential Seg Neuts % (Manual) (16-70) % Band Neuts % (Manual) (0-6) % Lymphocytes % (Manual) (9-44) % Monocytes % (Manual) (0-8) % Eosinophils % (Manual) (0-4) % Basophils % (Manual) (0-2) % Abs Neuts (Manual) (1.8-7.7) th/mm3 Differential Comment Platelet Estimate (Normal) Platelet Morphology (Normal) RBC Morphology (Normal) Sodium 138 (136-145) meq/L Potassium 3.6 (3.5-5.1) meq/L Chloride 108 H (98-107) meq/L Carbon Dioxide 24.3 (21.0-32.0) meq/L Anion Gap 6 (5-15) meq/L BUN 8 (7-18) mg/dL Creatinine 0.88 (0.60-1.30) mg/dL Estimated GFR Greater than 89 (>89) mL/min Random Glucose 94 (74-106) mg/dL Lactic Acid 1.0 (0.4-2.0) mmol/L Calcium 7.6 L D (8.5-10.1) mg/dL Total Bilirubin 0.4 (0.2-1.0) mg/dL AST 12 L (15-37) U/L ALT 11 L (12-78) U/L Alkaline Phosphatase 77 (45-117) U/L Total Protein 7.9 (6.4-8.2) g/dL Albumin 2.7 L (3.4-5.0) g/dL Urine Color Straw (Yellw/Straw) Urine Clarity Clear (Clear) Urine pH 6.0 (5.0-8.5) Ur Specific [place] 1.002 (1.002-1.035) Urine Protein Negative (Neg-Trace) mg/dL Urine Glucose (UA) Negative (Negative) mg/dL Urine Ketones Negative (Negative) mg/dL Urine Occult Blood Negative (Negative) Urine Nitrate Negative (Negative) Urine Bilirubin Negative (Negative) Urine Urobilinogen Less than 2 (Less than 2) mg/dL Ur Leukocyte Esterase Negative (Negative) Urine RBC Less than 1 (0-3) /hpf Urine WBC Less than 1 (0-5) /hpf Urine Mucus Few H (Occasional) /lpf Micro UA Comment Culture not ind Ur Microscopic Review Not Reportable Urine Culture Comments Culture not ind Adenovirus (PCR) (Not Detect) Bordetella holmesii PCR (Not Detect) B. pertussis DNA (PCR) (Not Detect) B. paraper/bronch (PCR) (Not Detect) Human Metapneumovir PCR (Not Detect) Influenza A (RT-PCR) (Not Detect) Influenza A (H1) PCR (Not Detect) Influenza A (H3) PCR (Not Detect) Influenza B (RT-PCR) (Not Detect) Parainfluenza 1 (PCR) (Not Detect) Parainfluenza 2 (PCR) (Not Detect) Parainfluenza 3 (PCR) (Not Detect) Parainfluenza 4 (PCR) (Not Detect) RSV Type A (PCR) (Not Detect) RSV Type B (PCR) (Not Detect) Rhinovirus (PCR) (Not Detect) 07/14/18 07/15/18 07/15/18 Range/Units 17:00 06:01 06:01 WBC 17.8 H (4.0-11.0) th/mm3 RBC 4.65 (4.50-5.90) mil/mm3 Hgb 13.5 (13.0-17.0) gm/dL Hct 40.9 (39.0-51.0) % MCV 88.0 (80.0-100.0) fL MCH 29.1 (27.0-34.0) pg MCHC 33.1 (32.0-36.0) % RDW 14.4 (11.6-17.2) % Plt Count 158 (150-450) th/mm3 MPV 8.8 (7.0-11.0) fL Prelim Diff (Auto) Slide review pending Neut % (Auto) 62.7 (16.0-70.0) % Lymph % (Auto) 32.7 (9.0-44.0) % Moore % (Auto) 4.2 (0.0-8.0) % Eos % (Auto) 0.2 (0.0-4.0) % Baso % (Auto) 0.2 (0.0-2.0) % Neut # (Auto) 11.1 H (1.8-7.7) th/mm3 Lymph # (Auto) 5.8 H (1.0-4.8) th/mm3 Moore # (Auto) 0.8 (0.0-0.9) th/mm3 Eos # (Auto) 0.0 (0.0-0.4) th/mm3 Baso # (Auto) 0.0 (0.0-0.2) th/mm3 WBC Differential Manual diff final Seg Neuts % (Manual) 55 (16-70) % Band Neuts % (Manual) 5 (0-6) % Lymphocytes % (Manual) 36 (9-44) % Monocytes % (Manual) 1 (0-8) % Eosinophils % (Manual) 1 (0-4) % Basophils % (Manual) 2 (0-2) % Abs Neuts (Manual) 10.7 H (1.8-7.7) th/mm3 Differential Comment . Platelet Estimate Normal (Normal) Platelet Morphology Normal (Normal) RBC Morphology Normal (Normal) Sodium 139 (136-145) meq/L Potassium 3.7 (3.5-5.1) meq/L Chloride 107 (98-107) meq/L Carbon Dioxide 26.6 (21.0-32.0) meq/L Anion Gap 5 (5-15) meq/L BUN 9 (7-18) mg/dL Creatinine 0.89 (0.60-1.30) mg/dL Estimated GFR Greater than 89 (>89) mL/min Random Glucose 84 (74-106) mg/dL Lactic Acid (0.4-2.0) mmol/L Calcium 8.3 L (8.5-10.1) mg/dL Total Bilirubin (0.2-1.0) mg/dL AST (15-37) U/L ALT (12-78) U/L Alkaline Phosphatase (45-117) U/L Total Protein (6.4-8.2) g/dL Albumin (3.4-5.0) g/dL Urine Color (Yellw/Straw) Urine Clarity (Clear) Urine pH (5.0-8.5) Ur Specific [place] (1.002-1.035) Urine Protein (Neg-Trace) mg/dL Urine Glucose (UA) (Negative) mg/dL Urine Ketones (Negative) mg/dL Urine Occult Blood (Negative) Urine Nitrate (Negative) Urine Bilirubin (Negative) Urine Urobilinogen (Less than 2) mg/dL Ur Leukocyte Esterase (Negative) Urine RBC (0-3) /hpf Urine WBC (0-5) /hpf Urine Mucus (Occasional) /lpf Micro UA Comment Ur Microscopic Review Urine Culture Comments Adenovirus (PCR) Not detected (Not Detect) Bordetella holmesii PCR Not detected (Not Detect) B. pertussis DNA (PCR) Not detected (Not Detect) B. paraper/bronch (PCR) Not detected (Not Detect) Human Metapneumovir PCR Not detected (Not Detect) Influenza A (RT-PCR) Not detected (Not Detect) Influenza A (H1) PCR Not detected (Not Detect) Influenza A (H3) PCR Not detected (Not Detect) Influenza B (RT-PCR) Not detected (Not Detect) Parainfluenza 1 (PCR) Not detected (Not Detect) Parainfluenza 2 (PCR) Not detected (Not Detect) Parainfluenza 3 (PCR) Not detected (Not Detect) Parainfluenza 4 (PCR) Not detected (Not Detect) RSV Type A (PCR) Not detected (Not Detect) RSV Type B (PCR) Not detected (Not Detect) Rhinovirus (PCR) Detected H (Not Detect) Imaging Data Radiologist's impression: Chest X-Ray 07/14/18 09:44 CONCLUSION: Left lower lobe airspace disease. Discharge Plan Discharge Disposition Patient Disposition: 30 Still Patient Discharge Details Diagnosis: Sepsis, Pneumonia Physicians Team ED Provider: Nash Booth Attending Provider: Alka Andrade Other Providers: Anila Fontanez Status ED Status: Left Department Discharge Information Discharge Date/Time: 07/14/18 14:24
[2018-07-15] MEDS ORDERED: Azithromycin Inj 500 MG in Sodium Chlor 0.9% Inj 250 ML IV.SIG SCH (12:20)
--- NOTE | 2018-07-15 12:28 | ECG ---
Date Performed: 07/14/2018 Time Performed: 21:13:16 PTAGE: 48 years EKG: Sinus rhythm POSSIBLE RIGHT VENTRICULAR CONDUCTION DELAY BORDERLINE ECG PREVIOUS TRACING : 11/24/2012 10.55 Since the previous tracing, no significant change noted DOCTOR: Heather Spring Interpretating Date/Time 07/15/2018 12:26:16
--- NOTE | 2018-07-15 19:39 | P.CONID ---
History of Present Illness Service: ID Consult date: 07/15/18 Requesting Physician: Skye Harris Reason for Consult: PNA, HIV dz Primary Care Provider: Wiliam Richardson History of Present Illness: 48 yo male with HIV dx, pt of Dr Garcia States non complaince with HAART last VL - in Dec, undetectable, unaware of his CD4 count,b but is taking Bactrim for PCP profilaxis, reports no OIs presented with few days of productive cough with nam colored sputum On presentation fever up to 102.9, leukocytosis of 22K CXR showed Left lower lobe airspace disease Started on broad spectrum abx (CFTX, azithro) Pt feels much better He denies any other c/o except weight loss with he links to his depressive mood 2/2 personal problems Bood clx negative @ 1 day sputum Gstain purulent, mixed zhane, + growth on cl. Leg/pneumococcas AG negtive Review of Systems All other systems reviewed negative except as stated in HPI PMFSH - History History Provided By: Patient - Medical History Medical History: Medical History (Last Reviewed 07/16/18 @ 06:21 by Anila Fontanez MD) HIV (human immunodeficiency virus infection) Hypertension - Tobacco History Second Hand Smoke Exposure: No Tobacco Use In Past 30 Days: No Smoking Status: Never smoker - Alcohol History How Often Do You Have a Drink Containing Alcohol: 2 to 4 times a month - Substance Use History Substance History: No History of Abuse - Travel History Recent Travel in the [place] Within the Last 8 Weeks: No Recent Travel Out of the Country Within the Last 8 Weeks: No - Immunization History Tetanus Immunization: Unsure Hx Influenza Vaccine This Season: Yes Medications and Allergies Active Medications: Active Medications Acetaminophen (Tylenol) 650 mg PO Q4H PRN PRN Reason: PAIN SCALE 0-3 OR TEMP> 100.5F Last Admin: 07/14/18 17:41 Dose: 650 mg Al Hydroxide/Mg Hydroxide (Milk Of Magnesia Liq) 30 ml PO Q12H PRN PRN Reason: Mild Constipation Albuterol (Albuterol Neb (Prn)) 2.5 mg NEB Q6HR NEB PRN PRN Reason: SHORTNESS OF BREATH Albuterol (Duoneb Neb (Ingris)) 1 ampul NEB Q4HR NEB [facility] Last Admin: 07/15/18 16:56 Dose: 1 ampul Amlodipine Besylate (Norvasc) 10 mg PO DAILY [facility] Last Admin: 07/15/18 08:16 Dose: 10 mg Emtricitabine/Tenofovir (Truvada 200/300 Mg) 1 tab PO DAILY [facility] Last Admin: 07/15/18 10:51 Dose: 1 tab Sodium Chloride (Ns Inj) 1,000 mls @ 0 mls/hr IV.SIG BOLUS [facility] Last Infusion: 07/14/18 11:55 Dose: Infused Azithromycin 500 mg/ Sodium (Chloride) 250 mls @ 250 mls/hr IV.SIG Q24H [facility] Last Infusion: 07/15/18 13:10 Dose: Infused Ceftriaxone Sodium 2,000 mg/ (Sodium Chloride) 100 mls @ 200 mls/hr IV.SIG Q24H [facility] Last Infusion: 07/15/18 14:47 Dose: Infused Senna/Docusate Sodium (Jenna-Colace) 1 tab PO BID [facility] Last Admin: 07/15/18 08:15 Dose: Not Given Sennosides (Senokot) 17.2 mg PO Q12H PRN PRN Reason: Moderate Constipation Allergies Allergy/AdvReac Type Severity Reaction Status Date / Time No Known Allergies AdvReac Unknown Uncoded 01/02/18 02:32 Home Medications Medication Instructions Recorded Confirmed Type amlodipine [Norvasc] 10 mg PO DAILY 07/14/18 07/14/18 History Exam Vital signs: Vital Signs 07/14/18 20:36 07/15/18 00:31 07/15/18 04:00 Temperature 98.9 F 99.5 F 98.5 F Pulse Rate 95 H 81 82 Respiratory Rate 18 18 18 Blood Pressure 167/78 H 152/90 H 136/89 Pulse Oximetry 97 97 98 07/15/18 08:00 07/15/18 10:09 07/15/18 12:00 Temperature 98.5 F 98.4 F Pulse Rate 76 75 78 Respiratory Rate 18 14 19 Blood Pressure 143/86 H 144/88 H Pulse Oximetry 99 99 99 07/15/18 16:00 Temperature 98.6 F Pulse Rate 78 Respiratory Rate 19 Blood Pressure 144/87 H Pulse Oximetry 98 Intake & Output 07/15/18 07/15/18 07/16/18 06:59 18:59 06:59 Intake Total 780 / 780 1330 / 1330 Output Total 600 / 600 Balance 180 / 180 1330 / 1330 Weight 68 kg Intake: IV 350 / 350 Azithromycin Inj 500 MG In NS 250 / 250 Inj 250 ML @ 250 mls/hr IV.SIG Q24H [facility] Rx#:[id number] Rocephin Inj 2,000 MG In NS Inj 100 / 100 100 ML @ 200 mls/hr IV.SIG Q24H [facility] Rx#:[id number] Oral 780 / 780 980 / 980 Output: Urine 600 / 600 Other: # Voids 3 7 Date of Last Bowel Movement 07/13/18 07/14/18 # Bowel Movements 1 - Constitutional no acute distress, average body habitus - Routine HEENT Exam Head: Present: normocephalic, atraumatic Eye: Present: EOMI, PERRL ENT: Present: mucous membranes moist, oropharynx clear - Routine Neck Exam Present: supple, full ROM - Routine Respiratory Exam Present: CTA bilaterally Comments: good effort - Routine Cardiovascular Exam Present: RRR, S1, S2 Comments: no murmurs, rubs gallops - Routine Abdominal Exam Present: soft, normoactive bowel sounds Comments: not tender not distende no hepatosplenomegaly, masses - Routine Extremities Exam Present: full ROM Comments: no cyanosu, clubbing or edema - Routine Skin Exam Present: intact, dry, warm - Routine Neurological Exam Present: alert, oriented X3, CN II-XII intact, moving all extremities, vision grossly intact, hearing grossly intact, normal speech - Routine Psychiatric Exam Present: normal affect, normal thought process, cooperative Results - Labs CBC & Chem 7: 07/15/18 06:01 07/15/18 06:01 Labs: Laboratory Results - last 24 hr 07/14/18 07/15/18 07/15/18 17:00 06:01 06:01 WBC 17.8 H RBC 4.65 Hgb 13.5 Hct 40.9 MCV 88.0 MCH 29.1 MCHC 33.1 RDW 14.4 Plt Count 158 MPV 8.8 Prelim Diff (Auto) Slide review pending Neut % (Auto) 62.7 Lymph % (Auto) 32.7 [place] % (Auto) 4.2 Eos % (Auto) 0.2 Baso % (Auto) 0.2 Neut # (Auto) 11.1 H Lymph # (Auto) 5.8 H [place] # (Auto) 0.8 Eos # (Auto) 0.0 Baso # (Auto) 0.0 WBC Differential Manual diff final Seg Neuts % (Manual) 55 Band Neuts % (Manual) 5 Lymphocytes % (Manual) 36 Monocytes % (Manual) 1 Eosinophils % (Manual) 1 Basophils % (Manual) 2 Abs Neuts (Manual) 10.7 H Differential Comment . Platelet Estimate Normal Platelet Morphology Normal RBC Morphology Normal Sodium 139 Potassium 3.7 Chloride 107 Carbon Dioxide 26.6 Anion Gap 5 BUN 9 Creatinine 0.89 Estimated GFR Greater than 89 Random Glucose 84 Calcium 8.3 L Adenovirus (PCR) Not detected Bordetella holmesii PCR Not detected B. pertussis DNA (PCR) Not detected B. paraper/bronch (PCR) Not detected Human Metapneumovir PCR Not detected Influenza A (RT-PCR) Not detected Influenza A (H1) PCR Not detected Influenza A (H3) PCR Not detected Influenza B (RT-PCR) Not detected Parainfluenza 1 (PCR) Not detected Parainfluenza 2 (PCR) Not detected Parainfluenza 3 (PCR) Not detected Parainfluenza 4 (PCR) Not detected RSV Type A (PCR) Not detected RSV Type B (PCR) Not detected Rhinovirus (PCR) Detected H - Imaging Chest X-Ray 07/14/18 09:44 CONCLUSION: Left lower lobe airspace disease. Assessment and Plan - Plan HIV dz, non compliance - unknown CD4 LLL PNA resume full HAART Rx cont CFX, azithromycin
[2018-07-16 07:14] LABS: Hematocrit 37.5 % (39.0-51.0); Hemoglobin 12.9 gm/dL (13.0-17.0); Mean Corpuscular HGB Conc 34.4 % (32.0-36.0); Mean Corpuscular Hemoglobin 29.9 pg (27.0-34.0); Mean Corpuscular Volume 86.8 fL (80.0-100.0); Mean Platelet Volume 8.8 fL (7.0-11.0); Platelet Count 159 th/mm3 (150-450); Red Blood Count 4.32 mil/mm3 (4.50-5.90); Red Cell Distribution Width 14.6 % (11.6-17.2); White Blood Count 7.3 th/mm3 (4.0-11.0)
[2018-07-16 07:37] LABS: Anion Gap 8 meq/L (5-15); Blood Urea Nitrogen 13 mg/dL (7-18); Calcium 8.1 mg/dL (8.5-10.1); Chloride 106 meq/L (98-107); Glomerular Filtration Rate Greater Than 89 mL/min (>89); Glucose,Random 95 mg/dL (74-106); Potassium 3.4 meq/L (3.5-5.1); Sodium 140 meq/L (136-145)
[2018-07-16] MEDS: Senna/Docusate Sodium 8.6/50 MG Tablet PO SCH (08:18)
[2018-07-16] MEDS: amLODIPine 10 MG Tablet PO SCH (08:18)
[2018-07-16 09:12] VITALS: RESP 19
--- NOTE | 2018-07-16 10:50 | P.PNFP ---
Subjective Interval history: Mr. Ge was seen on rounds today. He reports that he is feeling much better and is ready to go home. He says that his breathing has improved and he is able to get up and out of bed without difficulty. He was taken off oxygen this morning and has had no difficulty breathing since. He does report last night that his scrotum swelled up a bit. Was not painful and has reduced since. He denies any fevers, abdominal pain, nausea, vomiting, diarrhea, chest pain. <Skye Harris E - 07/16/18 10:50> Results - Labs Result diagrams: 07/16/18 05:45 07/16/18 05:45 <Alka Andrade - 07/16/18 11:25> Abnormal lab results 07/16/18 07/16/18 Range/Units 05:45 05:45 RBC 4.32 L (4.50-5.90) mil/mm3 Hgb 12.9 L (13.0-17.0) gm/dL Hct 37.5 L (39.0-51.0) % Potassium 3.4 L (3.5-5.1) meq/L Calcium 8.1 L (8.5-10.1) mg/dL Short CBC 07/16/18 Range/Units 05:45 WBC 7.3 D (4.0-11.0) th/mm3 Hgb 12.9 L (13.0-17.0) gm/dL Hct 37.5 L (39.0-51.0) % Plt Count 159 (150-450) th/mm3 BMP 07/16/18 05:45 Sodium 140 Potassium 3.4 L Chloride 106 Carbon Dioxide 26.0 BUN 13 Creatinine 0.73 Calcium 8.1 L <Alka Andrade - 07/16/18 11:25> Abnormal lab results 07/14/18 07/15/18 07/16/18 Range/Units 17:00 06:01 05:45 RBC 4.32 L (4.50-5.90) mil/mm3 Hgb 12.9 L (13.0-17.0) gm/dL Hct 37.5 L (39.0-51.0) % Abs Neuts (Manual) 10.7 H (1.8-7.7) th/mm3 Potassium (3.5-5.1) meq/L Calcium (8.5-10.1) mg/dL Rhinovirus (PCR) Detected H (Not Detect) 07/16/18 Range/Units 05:45 RBC (4.50-5.90) mil/mm3 Hgb (13.0-17.0) gm/dL Hct (39.0-51.0) % Abs Neuts (Manual) (1.8-7.7) th/mm3 Potassium 3.4 L (3.5-5.1) meq/L Calcium 8.1 L (8.5-10.1) mg/dL Rhinovirus (PCR) (Not Detect) Short CBC 07/16/18 Range/Units 05:45 WBC 7.3 D (4.0-11.0) th/mm3 Hgb 12.9 L (13.0-17.0) gm/dL Hct 37.5 L (39.0-51.0) % Plt Count 159 (150-450) th/mm3 BMP 07/16/18 05:45 Sodium 140 Potassium 3.4 L Chloride 106 Carbon Dioxide 26.0 BUN 13 Creatinine 0.73 Calcium 8.1 L <Skye Harris E - 07/16/18 10:50> Physical Exam Vital signs: Vital Signs 07/15/18 12:00 07/15/18 16:00 07/15/18 20:00 Temperature 98.4 F 98.6 F 98.1 F Pulse Rate 78 78 77 Respiratory Rate 19 19 18 Blood Pressure 144/88 H 144/87 H 145/98 H Pulse Oximetry 99 98 98 Pulse Oximetry [Exertion on Room Air] Pulse Oximetry [Resting on Room Air] 07/15/18 20:52 07/16/18 00:00 07/16/18 00:52 Temperature 98.3 F Pulse Rate 79 71 74 Respiratory Rate 15 19 16 Blood Pressure 141/90 H Pulse Oximetry 99 99 Pulse Oximetry [Exertion on Room Air] Pulse Oximetry [Resting on Room Air] 07/16/18 04:00 07/16/18 07:30 07/16/18 08:00 Temperature 97.8 F 98.2 F Pulse Rate 69 73 75 Respiratory Rate 20 16 19 Blood Pressure 148/95 H 146/100 H Pulse Oximetry 99 99 99 Pulse Oximetry [Exertion on Room Air] Pulse Oximetry [Resting on Room Air] 07/16/18 09:41 Temperature Pulse Rate Respiratory Rate Blood Pressure Pulse Oximetry Pulse Oximetry [Exertion on Room Air] 95 Pulse Oximetry [Resting on Room Air] 96 Intake & Output 07/15/18 07/16/18 07/16/18 18:59 06:59 18:59 Intake Total 1330 / 1330 700 / 700 Balance 1330 / 1330 700 / 700 Weight 68.1 kg Intake: IV 350 / 350 Azithromycin Inj 500 MG In NS 250 / 250 Inj 250 ML @ 250 mls/hr IV.SIG Q24H [facility] Rx#:[id number] Rocephin Inj 2,000 MG In NS Inj 100 / 100 100 ML @ 200 mls/hr IV.SIG Q24H [facility] Rx#:[id number] Oral 980 / 980 700 / 700 Other: # Voids 7 4 Date of Last Bowel Movement 07/14/18 # Bowel Movements 1 <Alka Andrade M - 07/16/18 11:25> Vital Signs 07/15/18 12:00 07/15/18 16:00 07/15/18 20:00 Temperature 98.4 F 98.6 F 98.1 F Pulse Rate 78 78 77 Respiratory Rate 19 19 18 Blood Pressure 144/88 H 144/87 H 145/98 H Pulse Oximetry 99 98 98 Pulse Oximetry [Exertion on Room Air] Pulse Oximetry [Resting on Room Air] 07/15/18 20:52 07/16/18 00:00 07/16/18 00:52 Temperature 98.3 F Pulse Rate 79 71 74 Respiratory Rate 15 19 16 Blood Pressure 141/90 H Pulse Oximetry 99 99 Pulse Oximetry [Exertion on Room Air] Pulse Oximetry [Resting on Room Air] 07/16/18 04:00 07/16/18 07:30 07/16/18 08:00 Temperature 97.8 F 98.2 F Pulse Rate 69 73 75 Respiratory Rate 20 16 19 Blood Pressure 148/95 H 146/100 H Pulse Oximetry 99 99 99 Pulse Oximetry [Exertion on Room Air] Pulse Oximetry [Resting on Room Air] 07/16/18 09:41 Temperature Pulse Rate Respiratory Rate Blood Pressure Pulse Oximetry Pulse Oximetry [Exertion on Room Air] 95 Pulse Oximetry [Resting on Room Air] 96 Intake & Output 07/15/18 07/16/18 07/16/18 18:59 06:59 18:59 Intake Total 1330 / 1330 700 / 700 Balance 1330 / 1330 700 / 700 Weight 68.1 kg Intake: IV 350 / 350 Azithromycin Inj 500 MG In NS 250 / 250 Inj 250 ML @ 250 mls/hr IV.SIG Q24H [facility] Rx#:[id number] Rocephin Inj 2,000 MG In NS Inj 100 / 100 100 ML @ 200 mls/hr IV.SIG Q24H [facility] Rx#:[id number] Oral 980 / 980 700 / 700 Other: # Voids 7 4 Date of Last Bowel Movement 07/14/18 # Bowel Movements 1 <Skye Harris Michael - 07/16/18 10:50> Narrative: GENERAL: Thin male sitting up in bed, comfortable, no acute distress CARDIOVASCULAR: Regular rate and rhythm. RESPIRATORY: No accessory muscle use. Clear to auscultation. Breath sounds equal bilaterally. GASTROINTESTINAL: Abdomen soft, non-tender, nondistended. MUSCULOSKELETAL: Extremities without cyanosis, or edema. Genitourinary: Small mass felt at the fingertips when performing hernia check with cough on right side <Rahat Harrismarcus Rodriguez - 07/16/18 10:50> Assessment and Plan - Assessment (1) Sepsis Code(s): A41.9 - Sepsis, unspecified organism Status: Acute (2) Pneumonia Code(s): J18.9 - Pneumonia, unspecified organism Status: Acute (3) Abdominal pain Code(s): R10.9 - Unspecified abdominal pain Status: Acute (4) HIV (human immunodeficiency virus infection) Code(s): B20 - Human immunodeficiency virus [HIV] disease Status: Chronic (5) Headache Code(s): R51 - Headache Status: Acute (6) Hypertension Code(s): I10 - Essential (primary) hypertension Status: Chronic (7) Hernia Code(s): K46.9 - Unspecified abdominal hernia without obstruction or gangrene Status: Acute (8) Nutrition, metabolism, and development symptoms Code(s): R63.8 - Other symptoms and signs concerning food and fluid intake Status: Acute <Alka Andrade - 07/16/18 11:25> (1) Sepsis Code(s): A41.9 - Sepsis, unspecified organism Status: Acute Plan: Patient met sepsis criteria [place] [address], temperature 102.9, heart rate 95 and chest x-ray consistent with left lower lobe pneumonia. -With unknown CD4 count consideration of possible end-stage HIV diseases i.e. pneumocystis. -Clinically improving as well as normalized white count -Transition to p.o. azithromycin today -Continue IV Rocephin -Tylenol for fevers greater than 100.5 -PO fluids for now as patient tolerates hemodynamically -Blood cultures no growth to date History: -Blood cultures drawn -Lactic acid on admission was 2.2, repeat lactic acid of 1 -Patient given 1 L normal saline bolus in the ED. -Patient given 1 dose azithromycin 500mg in ED (2) Pneumonia Code(s): J18.9 - Pneumonia, unspecified organism Status: Acute Plan: Evidence of L lower lobe airspace disease on chest xray Patient has no recent hospitalizations or acute care facilities Patient SpO2 97-99 on room air -Treatment for CAP with antibiotics as above -Rhinovirus positive, remainder respiratory panel negative -Pneumococcal and legionella urine antigens negative -Sputum culture, quantiferon gold testing as patient is HIV positive -DuoNeb every 4 hours scheduled and albuterol as needed every 6 hours -Nasal cannula oxygen as needed -Walk test ordered (3) Abdominal pain Code(s): R10.9 - Unspecified abdominal pain Status: Acute Plan: Patient reports that he sometimes takes Goody's powder for headaches, but denies excess usage. No recent melena noted -Urinalysis negative -Legionella antigens negative -Hemoccult positive, patient given the option for GI workup inpatient. He states "No reason to stay just for that, I feel ok with my stomach" and requested an outpatient GI referral. (4) HIV (human immunodeficiency virus infection) Code(s): B20 - Human immunodeficiency virus [HIV] disease Status: Chronic Plan: Patient states that he has been on antiviral therapy and he is consistent with that. He denies any AIDS defining illnesses. Does report that his last CD4 count was at least 6 months ago -HIV viral load, CD4 count (lymphocyte profile) ordered -Continue on home Truvada -Infectious disease consulted, recommended continued Rocephin and azithromycin as inpatient -Patient extensively counseled on the need to follow up with his infectious disease doctor and remain consistent with his medications (5) Headache Code(s): R51 - Headache Status: Acute Plan: Appears to be tension type in nature, patient denies any vision changes, photophobia -Resolved -Tylenol as needed -Continue to monitor (6) Hypertension Code(s): I10 - Essential (primary) hypertension Status: Chronic Plan: Continue home [facility] (7) Hernia Code(s): K46.9 - Unspecified abdominal hernia without obstruction or gangrene Status: Acute Plan: Hernia check on right side positive, reducible and no signs of incarceration or stimulation -Counseled patient on signs of incarceration and strangulation (8) Nutrition, metabolism, and development symptoms Code(s): R63.8 - Other symptoms and signs concerning food and fluid intake Status: Acute Plan: Diet: Regular diet, double portions with ensure Fluids: P.o. for now, patient is status post 1 L bolus in the ED DVT prophylaxis: SCDs only <Skye Harris - 07/16/18 11:04> - Assessment and Plan Discussed Condition With: Pernell Bowen and Lupe <Skye Harris - 07/16/18 10:50> - Attending Attestation The exam, history, and the medical decision-making described in the above note were completed with the assistance of the resident physician. I reviewed and agree with the findings presented. I attest that I had a [id number] encounter with the patient on the same day, and personally performed and documented my assessment and findings in the medical record. he is much better today. agree with D/C <Alka Andrade - 07/16/18 11:25> <Skye Harris E - Last Filed: 07/16/18 11:04> (1) Sepsis Qualifiers: Sepsis type: sepsis due to unspecified organism Qualified Code(s): A41.9 - Sepsis, unspecified organism (2) Pneumonia Qualifiers: Pneumonia type: due to unspecified organism (3) Abdominal pain Qualifiers: Abdominal location: periumbilical Qualified Code(s): R10.33 - Periumbilical pain (6) Hypertension Qualifiers: Hypertension type: essential hypertension Qualified Code(s): I10 - Essential (primary) hypertension <LupeAlka - Last Filed: 07/16/18 11:25> (1) Sepsis Qualifiers: Sepsis type: sepsis due to unspecified organism Qualified Code(s): A41.9 - Sepsis, unspecified organism (2) Pneumonia Qualifiers: Pneumonia type: due to unspecified organism (3) Abdominal pain Qualifiers: Abdominal location: periumbilical Qualified Code(s): R10.33 - Periumbilical pain (6) Hypertension Qualifiers: Hypertension type: essential hypertension Qualified Code(s): I10 - Essential (primary) hypertension <Skye Harris - Last Filed: 07/16/18 11:04> (1) Sepsis Qualifiers: Sepsis type: sepsis due to unspecified organism Qualified Code(s): A41.9 - Sepsis, unspecified organism (2) Pneumonia Qualifiers: Pneumonia type: due to unspecified organism (3) Abdominal pain Qualifiers: Abdominal location: periumbilical Qualified Code(s): R10.33 - Periumbilical pain (6) Hypertension Qualifiers: Hypertension type: essential hypertension Qualified Code(s): I10 - Essential (primary) hypertension <LupeAlexAlka - Last Filed: 07/16/18 11:25> (1) Sepsis Qualifiers: Sepsis type: sepsis due to unspecified organism Qualified Code(s): A41.9 - Sepsis, unspecified organism (2) Pneumonia Qualifiers: Pneumonia type: due to unspecified organism (3) Abdominal pain Qualifiers: Abdominal location: periumbilical Qualified Code(s): R10.33 - Periumbilical pain (6) Hypertension Qualifiers: Hypertension type: essential hypertension Qualified Code(s): I10 - Essential (primary) hypertension
--- NOTE | 2018-07-16 11:22 | P.DS ---
Date of admission: 07/14/18 11:54 Primary care physician: Wiliam Richardson Brief History from admission: Mr Ge is a 48-year-old male with known history of HIV who is presenting for evaluation of cough. He reports that for the past 3 days prior to admission he has had a cough that is minimally productive of yellow sputum. He has associated rhinorrhea as well as frontal headache with some dizziness. Yesterday he had a fever of 102. He denied any shortness of breath, chest pain , nausea, vomiting on admission he has been able to eat and drink without difficulty. Similarly he reports some lower abdominal pain that worsens with coughing. He has had some increased urinary frequency but denies true dysuria. He has been in contact with other family members with similar URI symptoms. He also reported a 40-50 pound weight loss by his estimation over the past several months and staying in a homeless assisted. Unfortunately he did not bring his HIV medicines which are currently at the homeless assisted. He did work them up on the Internet and was able to point out which medicines he was taking. However there was some question about some overlap with the medicines. The only pharmacy that he is gone to is [facility] which is a local pharmacy and likely is not open on . He also stated he has not been there for a while and he is going to his regular HIV doctor to get his medicines. He says the doctor hands and the medicines when he is in the clinic. PMH: HIV, 800CD4 and viral load undetected, more than 6 months ago. Managed by Dr Russo or a different infectious disease doctor according to him today. HTN Meds: Geoff Dumont [facility] Sx: None FMH: HTN, both parents Social: Tobacco- never smoker EtOH- once a week Drugs- none DS: Diagnosis - Discharge Diagnosis (1) Sepsis Status: Acute (2) Pneumonia Status: Acute (3) Abdominal pain Status: Acute (4) HIV (human immunodeficiency virus infection) Status: Chronic (5) Headache Status: Acute (6) Hypertension Status: Chronic (7) Hernia Status: Acute (8) Nutrition, metabolism, and development symptoms Status: Acute DS: Medications - Discharge Medications Prescriptions: levofloxacin [Levaquin] 750 mg PO DAILY 5 Days #5 tab DS: Summary Hospital Course: Mr Ge is a 48-year-old male with past medical history of HIV who was admitted on 07/14 with cough and shortness of breath. On admission he met sepsis criteria. Chest x-ray showed evidence of left lower lobe pneumonia. Sputum culture, respiratory panel, strep pneumo and Legionella urine antigens, CD4 count, HIV viral load ordered. Patient also noted to have headache and abdominal pain. Patient was treated for community-acquired pneumonia with Rocephin and azithromycin. Home Truvada was resumed. ID consulted and agreed with treatment plan for PNA. 07/15 patient reported that he subjectively felt much worse though white count was resolving and he remained afebrile. Patient was placed on scheduled DuoNeb's as well as oxygen. Patient improved throughout the day and was no longer requiring duo nebs or oxygen on the morning of 07/16. Hemoccult came back positive but after discussion with the patient he elects to have this worked up as an outpatient. Rhinovirus came back positive. He was clinically improved and requesting to go home. He was counseled extensively on the necessity of continuing his antiretrovirals as well as close follow-up with his infectious disease doctor. Patient was DC home with 5 days oral levaquin per ID recommendations on 07/16. - Time Spent with Patient Total time spent providing and/or coordinating discharge services: Less than 30 minutes - Quality: VTE Deep Vein Thrombosis/Pulmonary Embolism Present on Admission: No Exam Vital signs: Vital Signs 07/15/18 12:00 07/15/18 16:00 07/15/18 20:00 Temperature 98.4 F 98.6 F 98.1 F Pulse Rate 78 78 77 Respiratory Rate 19 19 18 Blood Pressure 144/88 H 144/87 H 145/98 H Pulse Oximetry 99 98 98 Pulse Oximetry [Exertion on Room Air] Pulse Oximetry [Resting on Room Air] 07/15/18 20:52 07/16/18 00:00 07/16/18 00:52 Temperature 98.3 F Pulse Rate 79 71 74 Respiratory Rate 15 19 16 Blood Pressure 141/90 H Pulse Oximetry 99 99 Pulse Oximetry [Exertion on Room Air] Pulse Oximetry [Resting on Room Air] 07/16/18 04:00 07/16/18 07:30 07/16/18 08:00 Temperature 97.8 F 98.2 F Pulse Rate 69 73 75 Respiratory Rate 20 16 19 Blood Pressure 148/95 H 146/100 H Pulse Oximetry 99 99 99 Pulse Oximetry [Exertion on Room Air] Pulse Oximetry [Resting on Room Air] 07/16/18 09:41 Temperature Pulse Rate Respiratory Rate Blood Pressure Pulse Oximetry Pulse Oximetry [Exertion on Room Air] 95 Pulse Oximetry [Resting on Room Air] 96 Intake & Output 07/15/18 07/16/18 07/16/18 18:59 06:59 18:59 Intake Total 1330 / 1330 700 / 700 Balance 1330 / 1330 700 / 700 Weight 68.1 kg Intake: IV 350 / 350 Azithromycin Inj 500 MG In NS 250 / 250 Inj 250 ML @ 250 mls/hr IV.SIG Q24H [facility] Rx#:[id number] Rocephin Inj 2,000 MG In NS Inj 100 / 100 100 ML @ 200 mls/hr IV.SIG Q24H [facility] Rx#:[id number] Oral 980 / 980 700 / 700 Other: # Voids 7 4 Date of Last Bowel Movement 07/14/18 # Bowel Movements 1 Results Procedures completed during hospitalization: None Labs on day of discharge: Labs from last 24 hours 07/16/18 07/16/18 05:45 05:45 WBC 7.3 D RBC 4.32 L Hgb 12.9 L Hct 37.5 L MCV 86.8 MCH 29.9 MCHC 34.4 RDW 14.6 Plt Count 159 MPV 8.8 Sodium 140 Potassium 3.4 L Chloride 106 Carbon Dioxide 26.0 Anion Gap 8 BUN 13 Creatinine 0.73 Estimated GFR Greater than 89 Random Glucose 95 Calcium 8.1 L Preliminary micro results at discharge 07/14/18 10:36 Aerobic Blood Culture - Preliminary Blood - Peripheral No growth in 2 days Anaerobic Blood Culture - Preliminary No growth in 2 days 07/14/18 10:46 Aerobic Blood Culture - Preliminary Blood - Peripheral No growth in 2 days Anaerobic Blood Culture - Preliminary No growth in 2 days 07/14/18 17:00 Sputum Culture - Preliminary Sputum - Expectorated Sputum Immature growth - reincubate - Impressions ITS Impressions Chest X-Ray 07/14/18 09:44 CONCLUSION: Left lower lobe airspace disease. Discharge Plan - Discharge Disposition Patient Disposition: 01 Discharge Home - Discharge Condition Condition: Good - Discharge Order Discharge Orders: Discharge Order (Routine); Ordered 07/16/18 Ordered By: Skye Harris - Physicians Team Attending Provider: Alka Andrade Other Providers: Anila Fontanez MD
[2018-07-16] MEDS ORDERED: Azithromycin 250 MG Tablet PO SCH (12:00)
[2018-07-16 12:40] VITALS: BP 152/63; PULSE 79; TEMP 98.1; O2SAT 99
--- NOTE | 2018-07-16 14:20 | P.PNID ---
Subjective Remarks: doing good afebrile normal resp zhane wants to go home he is + for rhinovirus Antibiotics: azithro CFTX Allergies/Adverse Reactions: Allergies No Known Allergies Adverse Reaction (Unknown, Uncoded 01/02/18 02:32) Objective Vital Signs 07/15/18 16:00 07/15/18 20:00 07/15/18 20:52 Temperature 98.6 F 98.1 F Pulse Rate 78 77 79 Respiratory Rate 19 18 15 Blood Pressure 144/87 H 145/98 H Pulse Oximetry 98 98 99 Pulse Oximetry [Exertion on Room Air] Pulse Oximetry [Resting on Room Air] 07/16/18 00:00 07/16/18 00:52 07/16/18 04:00 Temperature 98.3 F 97.8 F Pulse Rate 71 74 69 Respiratory Rate 19 16 20 Blood Pressure 141/90 H 148/95 H Pulse Oximetry 99 99 Pulse Oximetry [Exertion on Room Air] Pulse Oximetry [Resting on Room Air] 07/16/18 07:30 07/16/18 08:00 07/16/18 09:41 Temperature 98.2 F Pulse Rate 73 75 Respiratory Rate 16 19 Blood Pressure 146/100 H Pulse Oximetry 99 99 Pulse Oximetry [Exertion on Room Air] 95 Pulse Oximetry [Resting on Room Air] 96 07/16/18 12:00 Temperature 98.1 F Pulse Rate 79 Respiratory Rate 19 Blood Pressure 152/63 H Pulse Oximetry 99 Pulse Oximetry [Exertion on Room Air] Pulse Oximetry [Resting on Room Air] Intake & Output 07/15/18 07/16/18 07/16/18 18:59 06:59 18:59 Intake Total 1330 / 1330 700 / 700 100 / 100 Balance 1330 / 1330 700 / 700 100 / 100 Weight 68.1 kg Intake: IV 350 / 350 100 / 100 Azithromycin Inj 500 MG In NS 250 / 250 Inj 250 ML @ 250 mls/hr IV.SIG Q24H [facility] Rx#:[id number] Rocephin Inj 2,000 MG In NS Inj 100 / 100 100 / 100 100 ML @ 200 mls/hr IV.SIG Q24H [facility] Rx#:[id number] Oral 980 / 980 700 / 700 Other: # Voids 7 4 Date of Last Bowel Movement 07/14/18 # Bowel Movements 1 07/14/18 17:00 Sputum - Expectorated Sputum Gram Stain - Final 07/14/18 17:00 Sputum - Expectorated Sputum Sputum Culture - Final Heavy growth normal respiratory zhane 07/14/18 10:36 Blood - Peripheral Aerobic Blood Culture - Preliminary No growth in 2 days 07/14/18 10:36 Blood - Peripheral Anaerobic Blood Culture - Preliminary No growth in 2 days 07/14/18 10:46 Blood - Peripheral Aerobic Blood Culture - Preliminary No growth in 2 days 07/14/18 10:46 Blood - Peripheral Anaerobic Blood Culture - Preliminary No growth in 2 days 07/15/18 09:25 Sputum - Expectorated Sputum Gram Stain - Final 07/15/18 09:25 Sputum - Expectorated Sputum Sputum Culture - Pending 07/15/18 09:25 Stool Stool Occult Blood (PONCE) - Final Hemoccult positive 07/14/18 12:30 Urine - Random Urine Streptococcus pneumoniae Antigen (M - Final Presumptive negative for streptococcus pneumoniae antigen, suggesting no current or recent infection. Infection due to Streptococcus pneumoniae cannot be ruled out since the antigen present in the sample may be below the detection limit of the test. 07/14/18 12:30 Urine - Random Urine Legionella Antigen - Final Presumptive negative for Legionella pneumophila serogroup 1 antigen in urine, suggesting no recent or recurrent infection. Infection due to Legionella cannot be ruled out since other serogroups and species may cause disease, antigen may not be present in urine in early infection, and the level of antigen present in the urine may be below the detection limit of the test. Lab - Hematology Results 07/15/18 07/16/18 06:01 05:45 WBC 17.8 H 7.3 D RBC 4.65 4.32 L Hgb 13.5 12.9 L Hct 40.9 37.5 L MCV 88.0 86.8 MCH 29.1 29.9 MCHC 33.1 34.4 RDW 14.4 14.6 Plt Count 158 159 MPV 8.8 8.8 Prelim Diff (Auto) Slide review pending Neut % (Auto) 62.7 Lymph % (Auto) 32.7 [place] % (Auto) 4.2 Eos % (Auto) 0.2 Baso % (Auto) 0.2 Neut # (Auto) 11.1 H Lymph # (Auto) 5.8 H [place] # (Auto) 0.8 Eos # (Auto) 0.0 Baso # (Auto) 0.0 WBC Differential Manual diff final Seg Neuts % (Manual) 55 Band Neuts % (Manual) 5 Lymphocytes % (Manual) 36 Monocytes % (Manual) 1 Eosinophils % (Manual) 1 Basophils % (Manual) 2 Abs Neuts (Manual) 10.7 H Differential Comment . Platelet Estimate Normal Platelet Morphology Normal RBC Morphology Normal Lab - Chemistry Results 07/14/18 07/14/18 07/15/18 14:50 14:50 06:01 Sodium 138 139 Potassium 3.6 3.7 Chloride 108 H 107 Carbon Dioxide 24.3 26.6 Anion Gap 6 5 BUN 8 9 Creatinine 0.88 0.89 Estimated GFR Greater than 89 Greater than 89 Random Glucose 94 84 Lactic Acid 1.0 Calcium 7.6 L D 8.3 L Total Bilirubin 0.4 AST 12 L ALT 11 L Alkaline Phosphatase 77 Total Protein 7.9 Albumin 2.7 L 07/16/18 05:45 Sodium 140 Potassium 3.4 L Chloride 106 Carbon Dioxide 26.0 Anion Gap 8 BUN 13 Creatinine 0.73 Estimated GFR Greater than 89 Random Glucose 95 Lactic Acid Calcium 8.1 L Total Bilirubin AST ALT Alkaline Phosphatase Total Protein Albumin Imaging: ITS Impressions Chest X-Ray 07/14/18 09:44 CONCLUSION: Left lower lobe airspace disease. Physical Exam: GENERAL: NAD SKIN: Warm and dry. NO rash CARDIOVASCULAR: Regular rate and rhythm. RESPIRATORY: No accessory muscle use. Clear to auscultation. Breath sounds equal bilaterally. GASTROINTESTINAL: Abdomen soft, non-tender, nondistended. Hepatic and splenic margins not palpable. MUSCULOSKELETAL: Extremities without clubbing, cyanosis, or edema. No obvious deformities. NEUROLOGICAL: Awake and alert. No obvious cranial nerve deficits. Motor grossly within normal limits. Five out of 5 muscle strength in the arms and legs. Normal speech. PSYCHIATRIC: Appropriate mood and affect; insight and judgment normal. Assessment and Plan - Plan HIV dz, non compliance - unknown CD4 LLL PNA, nl resp zhane + rhinovirus resume full HAART Rx ([facility]) + all profilaxis abx per his HIV provider rec' s stop CFX, azithromycin Levaquine 750 mg daily to complete 7 days of abx (include time he was receiving CFTX, azithro) OK to ia home today darin webster RN
[2018-07-17 15:35] LABS: TB1 Ag minus Nil Result 0 IU/mL
== END 2018-07-16 14:51 | disposition home or self-care (01) ==
LOC: NEPE 08:28 → NEDA 11:54 → N07 14:28
PROVIDERS: ADMIT Family Medicine; ATTEND Family Medicine